=== PATIENT | male | born 1965 | race Caucasian/White ===

== ENCOUNTER 2017-04-12 14:14 | Inpatient (IN) | payer OTHER ==
[~2017-04-12] VITALS: Ht 175.3 cm; Wt 81.6 kg
--- NOTE | 2017-04-12 14:27 | NUR ---
51 Y/O MALE REQUESTING DETOX; STATES HE DRINKS 1 GALLON ("OR MORE") LIQUOR A DAY; LAST DETOX 2 YEARS AGO PER PT. PT VISIBLY INTOXICATED - DIAPHORETIC, SLURRING WORDS ... DENIES OTHER COMPAINTS. HAS FRIEND PRESENT. DENIES SI/HI TAKEN TO [facility] FOR EVAL. SECURITY PRESENT
[2017-04-12 14:30] VITALS: BP 124/82
--- NOTE | 2017-04-12 14:35 | NUR ---
SECURITY AT BEDSIDE FOR WANDING PT CHANGED INTO BLUE SCRUBS
--- NOTE | 2017-04-12 14:40 | ED GENERAL ADULT ---
History of Present Illness General Chief Complaint: ETOH/Drug Related Complaint Stated Complaint: ETOH DETOX Source: patient, friend Exam Limitations: intoxication Vital Signs & Intake/Output Vital Signs & Intake/Output Vital Signs Date Time Temp Pulse Resp B/P B/P Pulse O2 O2 Flow FiO2 Mean Ox Delivery Rate 04/123 116 20 140/68 04/12 2222 116 20 140/68 96 Room Air 04/12 2047 Room Air 04/12 2004 111 16 150/80 04/12 2003 111 16 150/80 93 Room Air 04/12 1430 97.9 116 16 124/82 04/12 1420 97.9 116 16 124/82 96 Room Air Allergies Coded Allergies: No Known Allergies (04/12/17) Reconcile Medications Buprenorphine HCl/Naloxone HCl (Suboxone 12 MG-3 MG Sl Film) 12 MG-3 MG FILM 1 STR SL BID MAINTENANCE (Reported) Lisinopril (Prinivil) 10 MG TABLET 1 TAB PO DAILY HUPERTENSION (Reported) Sertraline HCl (Zoloft) 50 MG TABLET 1 TAB PO DAILY MENTAL HEALTH (Reported) Triage Note: 51 Y/O MALE REQUESTING DETOX; STATES HE DRINKS 1 GALLON ("OR MORE") LIQUOR A DAY; LAST DETOX 2 YEARS AGO PER PT. PT VISIBLY INTOXICATED - DIAPHORETIC, SLURRING WORDS ... DENIES OTHER COMPAINTS. HAS FRIEND PRESENT. DENIES SI/HI TAKEN TO [facility] FOR EVAL. SECURITY PRESENT Triage Nurses Notes Reviewed? yes HPI: Patient presents requesting alcohol detox. Patient states that he was admitted 2 months ago from another facility for alcohol detox and knows that what he really needs his rehabilitation. Patient has no history of seizures or DTs. Positive blackouts. Patient states he is bit nauseous and vomiting over the past 6 days and only able to drink alcohol. Patient states he vomits everything else up. Patient denies any suicidal or homicidal ideations. Past History Travel History Traveled to [place] past 21 day No Medical History Any Pertinent Medical History? see below for history Neurological: NONE EENT: NONE Cardiovascular: hypertension Respiratory: NONE Gastrointestinal: NONE Hepatic: NONE Renal: NONE Musculoskeletal: NONE Psychiatric: NONE Endocrine: NONE Blood Disorders: NONE Cancer(s): NONE TECHNICAL TRAINING COORDINATOR/Reproductive: NONE Surgical History Surgical History: non-contributory Psychosocial History What is your primary language Kazakh Tobacco Use: Quit >30 days ago ETOH Use: heavy use, alcoholic Illicit Drug Use: denies illicit drug use Family History Hx Contributory? No Review of Systems Review of Systems Constitutional: Reports: no symptoms. EENTM: Reports: no symptoms. Respiratory: Reports: no symptoms. Cardiovascular: Reports: no symptoms. GI: Reports: no symptoms. Genitourinary: Reports: no symptoms. Musculoskeletal: Reports: no symptoms. Skin: Reports: no symptoms. Neurological/Psychological: Reports: no symptoms. Hematologic/Endocrine: Reports: no symptoms. Immunologic/Allergic: Reports: no symptoms. All Other Systems: Reviewed and Negative Physical Exam Physical Exam General Appearance: well developed/nourished, alert, awake, anxious, moderate distress, intoxicated Head: atraumatic, normal appearance Eyes: Bilateral: PERRL, EOMI, other (SLUGGISH). Ears, Nose, Throat: normal pharynx, normal ENT inspection, hearing grossly normal Neck: normal inspection, supple, full range of motion Respiratory: normal breath sounds, chest non-tender, no respiratory distress, lungs clear Cardiovascular: regular rate/rhythm, normal peripheral pulses Gastrointestinal: normal bowel sounds, soft, non-tender, no organomegaly Back: normal inspection, normal range of motion Extremities: normal inspection, normal capillary refill, normal range of motion, no edema Neurologic/Psych: no motor/sensory deficits, awake, alert, oriented x 3, normal mood/affect, SLURRING WORDS Skin: intact, normal color, warm/dry Lymphatic: no anterior cervical tete Comments: NO SIGNS OF TRAUMA Core Measures ACS in differential dx? No CVA/TIA Diagnosis: No Severe Sepsis Present: No Septic Shock Present: No Progress Differential Diagnoses I considered the following diagnoses in my evaluation of the patient: [ALCOHOL INTOXICATION, DRUG INTOXICATION, ELECTROLYTE ABNORMALITY] Plan of Care: Orders Procedure Date/time Status Regular Diet 04/12 D Active Add-on Test (ER Only) 04/12 2022 Active EKG 04/12 2022 Active CIWA 04/12 1439 Active URINE DRUGS OF ABUSE 04/12 1439 Complete ETHANOL 04/12 1439 Complete COMPREHENSIVE METABOLIC PANEL 04/12 1439 Complete CBC WITHOUT DIFFERENTIAL 04/12 1439 Complete TROPONIN LEVEL 04/12 1325 Complete Current Medications Sig/James Start time Last Medication Dose Stop Time Status Admin Cyanocobalamin/ 1 BAG ONCE ONE 04/12 2245 UNVr Thiamine/Pyridoxine 04/13 0644 (Vitamin in I.V.) Dextrose/Water 1,000 ML (D5W 1000) Lorazepam 2 MG ONE ONE 04/12 2245 UNVr (Ativan) 04/12 2246 Lorazepam 2 MG ONCE ONE 04/12 2245 UNVr (Ativan) 04/12 2246 Laboratory Tests 04/12/17 1744: Urine Opiates Screen < 100.00, Methadone Screen < 40, Barbiturate Screen < 60, Ur Phencyclidine Scrn < 6.00, Amphetamines Screen < 100, U Benzodiazepines Scrn < 85, Urine Cocaine Screen < 50, Urine Cannabis Screen < 5.00 04/12/17 1325: Anion Gap 20 H, Estimated GFR > 60, BUN/Creatinine Ratio 14.4, Glucose 115 H, Calcium 8.6, Total Bilirubin 0.5, AST 48, ALT 62, Alkaline Phosphatase 88, Troponin I < 0.01, Total Protein 7.7, Albumin 4.5, Globulin 3.2, Albumin/ Globulin Ratio 1.4, CBC w Diff NO MAN DIFF REQ, RBC 4.27 L, MCV 87.5, MCH 30.0, RDW 16.3 H, MPV 7.3 L, Gran % 52.2, Lymphocytes % 38.6, Monocytes % 8.6, Eosinophils % 0.3, Basophils % 0.3, Absolute Granulocytes 3.9, Absolute Lymphocytes 2.9, Absolute Monocytes 0.6, Absolute Eosinophils 0, Absolute Basophils 0, PUBS MCHC 34.3, Serum Alcohol 408.0 Diagnostic Imaging: Viewed by Me: Ultrasound. Discussed w/RAD: Ultrasound. Radiology Impression: PATIENT: SAVANNAH SOSA PRESENT AGE: 51 PATIENT ACCOUNT NO: [id number] : 66 LOCATION: [facility] ORDERING PHYSICIAN: CANDACE PATTON MD SERVICE DATE: 04/12/17 EXAM TYPE: US - US-LIMITED ABDOMEN EXAMINATION: US ABDOMEN LIMITED CLINICAL INFORMATION: Right upper quadrant pain. COMPARISON: None TECHNIQUE: Real-time imaging of the right upper quadrant abdominal viscera. FINDINGS: PANCREAS: Not well visualized secondary to bowel gas. LIVER: The liver demonstrates normal size and contour with increased echogenicity. No focal lesion or intrahepatic biliary duct dilatation. GALLBLADDER: Normal. The gallbladder is physiologically distended without evidence of stones, sludge, polyps, wall thickening or pericholecystic fluid. COMMON BILE DUCT: Normal in caliber measuring 0.6 cm in diameter. RIGHT KIDNEY: Normal. No hydronephrosis. No renal calculi or focal parenchymal lesions. The kidney measures 12.1 cm in maximum dimension. FREE FLUID: None. IMPRESSION: Hepatic steatosis. Unremarkable appearance of the gallbladder. DICTATED BY: FREDDIE ROSAS MD DATE/TIME DICTATED:04/12/172029 ACCOUNT RECEIVABLE CLERK:WADE DATE/TIME TRANSCRIBED:04/12/172029 CONFIDENTIAL, DO NOT COPY WITHOUT APPROPRIATE AUTHORIZATION. <Electronically signed in Other Vendor System> SIGNED BY: ALISON ESPITIA,FREDDIE 04/12/172033 Initial ED EKG: NSR, nonspecific ST T wave chg Departure Departure Disposition: STILL A PATIENT Condition: Stable Clinical Impression Primary Impression: Alcohol dependence with withdrawal Referrals: Grecia XAVIER MD (PCP/Family) Departure Forms: Customer Survey General Discharge Information Admission Note Spoke With: EL ARVIZU MD Documentation of Exam: Documentation of any treatments & extenuating circumstances including Concerns Regarding Discharge (functional status, medication knowledge or non-compliance, living conditions, etc.) that warrant an admission rather than observation: [ ATIVAN PER CIWA, SOCIAL WORK CONSULT FOR REHAB] Alcohol Withdrawl Admission ED Alcohol Detox Admission d/t: CIWA Score >15 Critical Care Note Critical Care Note Critical Care Time: mins: (45 MIN)
--- NOTE | 2017-04-12 14:40 | NUR ---
PT PRESENTS TO ED SEEKING ETOH DETOX. PT STATES HIS LAST DRINK WAS 30 MINUTES AGO AND THAT HE DRINKS "A GALLON" OF [place]OD[place] DAILY. PT DENIES HISTORY OF SEIZURES. PT REPORTS HX OF HYPERTENSION, TAKES MED FOR THAT, PLUS ZOLOFT AND SUBOXONE MAINTENANCE. PER PT, SUBOXONE IS PRESCRIBED BY DR XAVIER. PT DENIES SI OR HI. SITTER AT BEDSIDE.
--- NOTE | 2017-04-12 14:47 | NUR ---
DR PATTON AT BEDSIDE FOR EVAL
[2017-04-12 15:40] LABS: ABSOLUTE BASOPHIL COUNT 0 /CUMM (0.0-0.2); ABSOLUTE EOSINOPHIL COUNT 0 /CUMM (0.0-0.7); ABSOLUTE GRANULOCYTE CT 3.9 /CUMM (1.4-6.5); ABSOLUTE LYMPH COUNT 2.9 /CUMM (1.2-3.4); ABSOLUTE MONOCYTE COUNT 0.6 /CUMM (0.10-0.60); BASOPHIL % 0.3 % (0.0-2.0); EOSINOPHIL % 0.3 % (0-5); GRANULOCYTE % 52.2 % (42.2-75.2); HEMATOCRIT 37.4 % (42-52); MEAN CORPUSCULAR HGB CONC 34.3 G/DL (33.0-37.0); MEAN CORPUSCULAR VOLUME 87.5 FL (80.0-94.0); MEAN PLATELET VOLUME 7.3 FL (7.4-10.4); PLATELET COUNT 213 /CUMM (130-400); RBC DISTRIBUTION WIDTH 16.3 % (11.5-14.5); RED BLOOD CELL CT 4.27 /CUMM (4.70-6.10); WHITE BLOOD CELL COUNT 7.4 /CUMM (4.8-10.8)
[2017-04-12 16:19] VITALS: BP 124/82
--- NOTE | 2017-04-12 18:28 | NUR ---
PT REPORTING UPPER RIGHT QUADRANT PAIN. PT STATES HE WAS TOLD IN THE PAST THAT HE HAS A "FATTY LIVER". ADVISED PT THAT AST/ALT WERE WITHIN NORMAL RANGE. DR PATTON TO ORDER U/S. SITTER AT DOOR
[2017-04-12] MEDS ORDERED: ZOLOFT50 M1 PO (19:12)
[2017-04-12] MEDS ORDERED: PRINIVIL10 M1 PO (19:13)
[2017-04-12] MEDS ORDERED: SUBOXONE 12 MG1 EACH SL ×2 (19:14→19:15)
--- NOTE | 2017-04-12 19:15 | NUR ---
PT IN ROOM 15 CALM AND COOPERATIVE, COMPLAINING OF WITHDRAWAL SYMPTOMS INCLUDING NAUSEA, HEADACHE, ANXIETY, TREMORS, LIGHT SENSITIVITY. SITTER AT DOOR.
[2017-04-12 20:04] VITALS: BP 150/80
--- NOTE | 2017-04-12 20:34 | ULTRASOUND REPORT ---
EXAMINATION: US ABDOMEN LIMITED CLINICAL INFORMATION: Right upper quadrant pain. COMPARISON: None TECHNIQUE: Real-time imaging of the right upper quadrant abdominal viscera. FINDINGS: PANCREAS: Not well visualized secondary to bowel gas. LIVER: The liver demonstrates normal size and contour with increased echogenicity. No focal lesion or intrahepatic biliary duct dilatation. GALLBLADDER: Normal. The gallbladder is physiologically distended without evidence of stones, sludge, polyps, wall thickening or pericholecystic fluid. COMMON BILE DUCT: Normal in caliber measuring 0.6 cm in diameter. RIGHT KIDNEY: Normal. No hydronephrosis. No renal calculi or focal parenchymal lesions. The kidney measures 12.1 cm in maximum dimension. FREE FLUID: None. IMPRESSION: Hepatic steatosis. Unremarkable appearance of the gallbladder.
--- NOTE | 2017-04-12 20:46 | NUR ---
PT MEDICATED WITH ZOFRAN 4MG ODT AND GI COCKTAIL. EKG PERFORMED AND SIGNED OFF BY DR PATTON
--- NOTE | 2017-04-12 21:50 | NUR ---
PT MEDICATED WITH CLONIDINE 0.1MG AND ATARAX 25MG PO. PT WRETCHING, ASKING TO BE ADMITTED FOR ETOH W/D. PT ASKING TO SEE DR PATTON.
[2017-04-12 22:23] VITALS: BP 140/68
--- NOTE | 2017-04-12 22:30 | NUR ---
DR PATTON AT BEDSIDE
--- NOTE | 2017-04-12 22:40 | NUR ---
IV ESTABLISHED, RIGHT FOREARM #20
--- NOTE | 2017-04-12 22:46 | NUR ---
PT HAS IV VITAMIN BAG INFUSING AT PRESENT
--- NOTE | 2017-04-12 22:54 | NUR ---
PT MEDICATED WITH ATIVAN 2MG IV, ATIVAN 2MG PO AND REGLAN 10MG PO. SITTER AT DOOR.
--- NOTE | 2017-04-12 23:15 | History & Physical ---
MARCELO ESPITIA,[facility] 04/12/17 2314: General Information and HPI MD Statement: I have seen and personally examined SAVANNAH SOSA and documented this H&P. The patient is a 51 year old M who presented with a patient stated chief complaint of [alcohol detox]. Source of Information: patient Exam Limitations: intoxication, drowsy History of Present Illness: Patient is a 51-year-old gentleman with PMH of alcoholism, hypertension, anxiety who has come to the ED requesting alcohol detoxification. Patient reports one bottle of vodka per day for the past 2 weeks. Patient reports that since the past fall he has started drinking after 9 years of being sober. He was admitted to [facility] in January 2017 for alcohol detox and was discharged to follow-up with the the outpatient rehabilitation afterwards. Patient has a started drinking right after being discharged from the rehab facility. Patient denies any alcohol withdrawal seizures. He reports constant nausea with none bloody vomitus, reports poor appetite, also reports abdominal pain in the right upper and right lower abdomen, also reports one episode of watery nonbloody diarrhea yesterday. Patient has been having constant headaches, denies loss of consciousness and dizziness. Reports palpitations with no chest pain. Denies fever chills, coughing, shortness of breath, urinary symptoms. 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 Also has constant stress at work that contributes to his alcoholism, in addition to being around friends who drink a lot of alcohol. Denies depression or suicidal ideation. Patient had chronic back pain for which he was on opioids follows with an addiction program and receives treatment with Suboxone, prescribed by Brodie Flood MD. He also sees Dr. Nick Terrell for anxiety. Patient lives by himself, is , and has a 14 year old daughter. Allergies/Medications Allergies: Coded Allergies: No Known Allergies (04/12/17) Past History Travel History Traveled to [place] past 21 day No Medical History Neurological: NONE EENT: NONE Cardiovascular: hypertension Respiratory: NONE Gastrointestinal: NONE Hepatic: NONE Renal: NONE Musculoskeletal: NONE Psychiatric: alcohol dependence, anxiety Endocrine: NONE Blood Disorders: NONE Cancer(s): NONE CLIENT CARE COORDINATOR/Reproductive: NONE Surgical History Surgical History: non-contributory Past Family/Social History Family History Relations & Conditions if any MOTHER FH: breast cancer FH: lung cancer Psychosocial History Smoking Status: Former Smoker (quit 09 months ago) ETOH Use: heavy use, alcoholic Illicit Drug Use: denies illicit drug use Review of Systems Review of Systems Constitutional: Denies: chills, fever, malaise, weakness. EENTM: Reports: no symptoms. Cardiovascular: Reports: palpitations. Denies: chest pain, peripheral edema, syncope. Respiratory: Denies: cough, short of breath, sputum production. GI: Reports: abdominal pain, diarrhea, nausea, vomiting. Denies: constipation, bloody stool. Genitourinary: Reports: no symptoms. Musculoskeletal: Reports: back pain. Skin: Reports: no symptoms. Neurological/Psychological: Reports: anxiety, headache, tremors. Hematologic/Endocrine: Reports: no symptoms. Exam & Diagnostic Data Last 24 Hrs of Vital Signs/I&O Vital Signs Date Time Temp Pulse Resp B/P B/P Pulse O2 O2 Flow FiO2 Mean Ox Delivery Rate 04/13 0427 98.2 105 20 140/80 91 Room Air 04/13 0139 98.2 100 20 140/80 91 Room Air 04/13 0000 97.3 109 18 152/79 04/12 2359 97.3 109 18 152/79 97 04/12 2223 116 20 140/68 04/12 2222 116 20 140/68 96 Room Air 04/12 2047 Room Air 04/12 2004 111 16 150/80 04/12 2003 111 16 150/80 93 Room Air 04/12 1430 97.9 116 16 124/82 04/12 1420 97.9 116 16 124/82 96 Room Air Intake & Output 04/13 0800 04/13 0000 04/12 1600 Intake Total Output Total Balance Patient 81.647 kg Weight Weight Reported by Patient Measurement Method Physical Exam General Appearance Oriented X3, Cooperative, No Acute Distress, drowsy Skin No Significant Lesion Skin Temp/Moisture Exam: Warm/Dry Sepsis Skin Exam (color): Normal for Ethnicity HEENT Atraumatic, EOMI, Mucous Membr. moist/pink, pupils myotic and minimally reactive to light Neck Supple Cardiovascular Normal S1, Normal S2, No Murmurs, tachycardic Lungs Clear to Auscultation, Normal Air Movement Abdomen Normal Bowel Sounds, Soft, right lower and right upper quadrant tenderness, no guarding or rigidity, yusuf sign (-) Neurological Normal Speech, Strength at 5/5 X4 Ext, Normal Tone, Sensation Intact, Cranial Nerves 3-12 NL Extremities No Cyanosis, No Edema, Normal Pulses Vascular Pulses Symmetrical Last 24 Hrs of Labs/Gerald: Laboratory Tests 04/12/17 1744: Urine Opiates Screen < 100.00, Methadone Screen < 40, Barbiturate Screen < 60, Ur Phencyclidine Scrn < 6.00, Amphetamines Screen < 100, U Benzodiazepines Scrn < 85, Urine Cocaine Screen < 50, Urine Cannabis Screen < 5.00 04/12/17 1325: Anion Gap 20 H, Estimated GFR > 60, BUN/Creatinine Ratio 14.4, Glucose 115 H, Calcium 8.6, Phosphorus 4.2, Magnesium 1.8, Total Bilirubin 0.5, AST 48, ALT 62, Alkaline Phosphatase 88, Troponin I < 0.01, Total Protein 7.7, Albumin 4.5, Globulin 3.2, Albumin/Globulin Ratio 1.4, CBC w Diff NO MAN DIFF REQ, RBC 4.27 L, MCV 87.5, MCH 30.0, RDW 16.3 H, MPV 7.3 L, Gran % 52.2, Lymphocytes % 38.6, Monocytes % 8.6, Eosinophils % 0.3, Basophils % 0.3, Absolute Granulocytes 3.9, Absolute Lymphocytes 2.9, Absolute Monocytes 0.6, Absolute Eosinophils 0, Absolute Basophils 0, PUBS MCHC 34.3, Serum Alcohol 408.0 Diagnostic Data EKG Results sinus rhythm, rate of 106, QTc 468, PVCs Other Results SERVICE DATE: 04/12/17 EXAM TYPE: US - US-LIMITED ABDOMEN EXAMINATION: US ABDOMEN LIMITED CLINICAL INFORMATION: Right upper quadrant pain. COMPARISON: None TECHNIQUE: Real-time imaging of the right upper quadrant abdominal viscera. FINDINGS: PANCREAS: Not well visualized secondary to bowel gas. LIVER: The liver demonstrates normal size and contour with increased echogenicity. No focal lesion or intrahepatic biliary duct dilatation. GALLBLADDER: Normal. The gallbladder is physiologically distended without evidence of stones, sludge, polyps, wall thickening or pericholecystic fluid. COMMON BILE DUCT: Normal in caliber measuring 0.6 cm in diameter. RIGHT KIDNEY: Normal. No hydronephrosis. No renal calculi or focal parenchymal lesions. The kidney measures 12.1 cm in maximum dimension. FREE FLUID: None. IMPRESSION: Hepatic steatosis. Unremarkable appearance of the gallbladder. DICTATED BY: FREDDIE ROSAS MD DATE/TIME DICTATED:04/12/172029 AQUACULTURE FARMER:WADE DATE/TIME TRANSCRIBED:04/12/172029 Assessment/Plan Assessment: Patient is a 51-year-old gentleman with PMH of alcoholism, hypertension, anxiety who has come to the ED requesting alcohol detoxification. Patient denies any seizures or LOC. Patient is admitted to the general medicine floor for alcohol detoxification. Problem list and plan: Alcohol intoxication and withdrawal * Continue IV NS * Banana bag * Thiamine, folic acid, multivitamins * Scheduled doses of IV Ativan 2mg Q4 * Ativan per CIWA Q1 PRN * Low threshold for ICU transfer if CIWA scores continues to be >25 and the patient * watch for refeeding syndrome when the patient starts eating tomorrow, will check P and Mg and replete if necessary * psychiatry consult Anion gap metabolic acidosis * compensated metabolic acidosis * most likely due to excess alcohol intake * will continue IV fluids * repeat BEP in am Normocytic anemia * no evidence of bleeding. no baseline CBC available. * may be a combination of JASSON and VitB12 or folate deficiency * added Iron studies, VitB12 and Folate to labs HTN * will continue lisinopril 10 mg daily Anxiety * will continue Zoloft 50 mg daily Chronic back pain on opioid de-addiction * will contact Brodie Flood MD office in [facility] in am to confirm the dose of suboxone Diet: regular Mild pain pathway with tylenol DVT px with SC lovenox FC As Ranked By This Provider Problem List: 1. Alcohol dependence with withdrawal Core Measures/Miscellaneous Acute Coronary Syndrome ACS Diagnosis: No Cerebrovascular Accident CVA/TIA Diagnosis: No Congestive Heart Failure CHF Diagnosis: No Venous Thromboembolism VTE Risk Factors: Acute medical illness, Age > 40 [facility] prophylaxis d/t: VTE low risk, No contraindications No VTE Pharm Prophylaxis d/t: VTE low risk, No contraindications VTE Diagnosis: No VTE Type: NONE VTE Confirmed by (Test): NONE Severe Sepsis Severe Sepsis Present: No Septic Shock Septic Shock Present: No Miscellaneous Documentation Attending Case Discussed With: EL ARVIZU MD Primary Care Physician: Grecia XAVIER MD Patient sees these Specialists none Level of Patient Care: General Medicine KAMLA NEUMANN 04/12/17 2332: General Information and HPI Allergies/Medications Home Med list Buprenorphine HCl/Naloxone HCl (Suboxone 12 MG-3 MG Sl Film) 12 MG-3 MG FILM 1 STR SL BID MAINTENANCE (Reported) Folic Acid 1 MG TABLET 1 MG PO DAILY etoh Gabapentin 300 MG CAPSULE 300 MG PO Q8 anxiety/depression Lisinopril (Prinivil) 10 MG TABLET 1 TAB PO DAILY HUPERTENSION (Reported) Lorazepam (Ativan) 1 MG TABLET 1 TAB PO QHS ETOH DETOX Omeprazole 40 MG CAPSULE.DR 1 CAP PO DAILY GI (Reported) Sertraline HCl (Zoloft) 100 MG TABLET 100 MG PO DAILY depression Thiamine HCl (Vitamin B-1) 100 MG TABLET 100 MG PO DAILY etoh Resident Review Statement Resident Statement: examined this patient, discussed with art gallery internship, agreed with art gallery internship Other Findings: This is a 51-year-old gentleman with past medical history of alcoholism, hypertension, anxiety who came into the ED requesting for alcohol detoxification. Apparently he had one bottle of vodka, every day for last 2 weeks. His last drink was today morning prior to presentation (04/12/17). He denied any history of previous alcohol withdrawal seizures. He was recently hospitalized at [facility] after he started drinking again in fall 2015 after being sober for 8 years. He was admitted to [facility] in January 2017 for alcohol detoxification and then was discharged to outpatient rehabilitation after that. He was discharged from outpatient rehabilitation 2 weeks ago after which he started drinking again and continued to drink bottle of vodka daily. He denied any bloody vomitus, any abdominal pain, diarrhea, constipation. He did have some nausea and continued of constant headaches, he also had some palpitations. Patient works as a director at [employer], he does report that he has a lot of stress as work however his main reason of alcoholism is having friends around that drink alcohol as well. He said that he remained sober for 8 years because he was not around these friends however he came in touch with them again and started drinking again from fall 2015. He also has chronic back pain for which he was on opioids and he is currently on Suboxone prescribed by his primary care Dr. Brodie Turcios M.D. He sees Dr. Suresh Terrell for anxiety as psychiatrist. He lives by himself, is and has a 14-year-old daughter. Tmax of 97.9, pulse of 116, respiration of 16, blood pressure of 140/68, 96% on room air. Physical exam : alert oriented 3, tremulous, anxious, flushed skin, alert oriented to time place and person. Skin was warm and flushed. CVS normal S1-S2 no murmur. Lungs clear to auscultate. Abdomen normal bowel sounds, no guarding or rigidity however tenderness present in the right upper quadrant on deep palpation, Yusuf's sign negative, ?mild hepatomegaly Neurological exam nonfocal, tremor present on outstretched hand. Extremities no cyanosis no edema. Pulses palpable bilaterally. Urine toxicology negative for any substance of abuse. Serum alcohol level of 408. White count of 7.4, H/H of 12.8/37.4, platelet of 213. BUN and creatinine 13/0.9, X within normal limits, magnesium of 1.7, phosphorus 4.5, anion gap of 20, glucose of 115. EKG showed sinus tachycardia with rate of 106, QTC of 468, PVCs present. USG the Abdomen Showed Hepatic Steatosis, Unremarkable Appearance of Gallbladder. We will admit the patient for treatment of alcohol intoxication and withdrawal. Continue to monitor vitals every shift, continue monitor vitals, IV Ativan as per CIWA. IV Ativan 2 mg Q8 standing dose. Low threshold for transfer to ICU if CIWA continue to be more than 25 and patient continues to require more and more Ativan. Last drink was on the morning of 04/12/2017, be watchful for next 48-72 hours for sings of withdrawal. Once patient starts eating,start PO MV, thiamine and folate. check phosphorus and magnesium along with potassium, replete as necessary. Psych consult in a.m. Social work consult in a.m. Eventual plan of outpatient rehabilitation needs to be planned. Once tolerates by mouth diet, continue multivitamin and thiamine and folate by mouth. Problem #2 history of hypertension. Continue lisinopril 10 mg daily. Problem #3 anion gap metabolic acidosis. Most likely secondary to alcohol intoxication. Continue IV fluids. Continue banana bag. Problem #4 normocytic anemia. We'll check iron studies. Continue to follow. Problem #5 history of chronic pain syndrome. Patient takes Suboxone, prescribed by PCP. Confirmed in a.m. Continue mild/moderate and severe pain pathway for pain management. Patient takes Percocet when necessary for pain management at home. Continue to watch pain scores closely and adjust pain medications as needed. #6 history of anxiety/depression. Continue Zoloft in a.m. Full code. Mild/moderate and severe pain pathway. DVT prophylaxis with Lovenox. Regular diet. EL ARVIZU 04/13/17 0349: Attending MD Review Statement Attending Statement Attending MD Statement: examined this patient, discuss w/resident/PA/INSPECTION SUPERVISOR, agreed w/resident/PA/INSPECTION SUPERVISOR, reviewed EMR data (avail), reviewed images, amended to note Attending Assessment/Plan: CC: Alcohol detox PMH: Alcoholism, HTN, anxiety, history of opiate dependence Patient came to ER for all called detox. Patient was sober for 9 years, relapsed in fall, was in different hospital about 2 months back for detox, followed up with outpatient rehabilitation, did well for a few days but then relapsed again. Patient wants to undergo detoxification as he is having family problems, financial problems secondary to alcohol use. Patient denied any alcohol-related seizures in the past. Patient admits blacking out episodes after heavy drinking, does not eat much when he binge drinks, has some nausea and vomiting and associated abdominal pain but denies any syncopal episode, falls, head trauma, diarrhea, suicidal ideation, hallucinations. Drinks about 1 gallon or more liquor per day Vitals: Afebrile, tachycardic, RR 20, mildly hypertensive, saturating well on room air. On examination: A O 3, somnolent but arousable, tremors present, mildly diaphoretic, cooperative, no acute distress, neck supple, JVD normal, no lymphadenopathy, mucosa moist, no focal neurological deficit, no dependent edema , no obvious skin rashes or inflammation are spider angiomata CVS: S1-S2, RRR. RS: Clear to auscultate bilaterally. Abdomen: Soft, NT, ND, bowel sounds present. Labs: WBC 7.4, hemoglobin 12.8, hematocrit 37.4, platelets 213, chloride 95, bicarbonate 24, anion gap 20, BUN 13, creatinine 0.9, glucose 115, AST 48, ALT 62, albumin 4.5 U tox unremarkable, serum alcohol 408 Limited ultrasound abdomen: Hepatic steatosis. Unremarkable appearance of the gallbladder. A and P + Alcohol detox/ withdrawal + History of HTN + Anion gap metabolic acidosis secondary to alcohol + Opiate dependence currently on Suboxone + History of anxiety depression - Admit to general medicine - Scheduled Ativan 2 mg by mouth 3 times a day and when necessary Ativan according to [facility] protocol - Replace electrolytes, thiamine and folic acid - Gentle hydration - Check phosphate tomorrow, CPK in a.m. - Fall precautions - Repeat CBC, CMP in a.m. - Psychiatry consult - Continue home doses of lisinopril, Zoloft and Suboxone, confirm Suboxone dose from PCP - DVT prophylaxis with Lovenox or heparin - Adequate pain control
--- NOTE | 2017-04-12 23:23 | NUR ---
ASSUMED CARE OF PT PER GONSALO ALEXANDRA. PT STANDING IN HALLWAY OF WITH SITTER IN PLACE FOR SAFETY. WILL CONTINUE TO MONITOR
[2017-04-13] VITALS (10 sets, daily range): BP systolic 104–152; BP diastolic 70–90
--- NOTE | 2017-04-13 00:06 | NUR ---
PT GOING TO ROOM 220-2
--- NOTE | 2017-04-13 00:13 | NUR ---
THIS RN PLACED 2ND IV SITE IN LH #20. IV SITE #1 DID NO LONGER FLUSHED. PT HAS BANANA BAG INFUSING 125ML/HR INTO SECOND IV SITE. PT WAS NOT MEDICATEDWITH 2MG ATIVAN IV, NOT NEEDED.
--- NOTE | 2017-04-13 00:47 | NUR ---
REPORT GIVEN TO GONSALO MCKEON.
--- NOTE | 2017-04-13 03:50 | Admission Certification ---
Admission Certification Certification Statement - As attending physician, I certify that at the time of - admission, based on clinical presentation, severity of - symptoms, need for further diagnostic testing and - therapeutic interventions, and risk of adverse outcomes - without in-hospital treatment, in my clinical assessment, - this patient requires an acute hospital stay for a minimum - of two nights or longer. I have also considered psychsocial - factors such as support system, advanced age, financial - issues, cognitive issues, and failed out-patient treatments, - past re-admission history, safety of patient, and lack of - compliance as applicable. Specific rationale supporting this admission is: Alcohol withdrawal
--- NOTE | 2017-04-13 07:18 | PN- Housestaff ---
ASHELY ESPITIA,LILIANA 04/13/17 0718: Subjective Follow-up For: alcohol detox Subjective: Pt reports having drunk 1 gallon of vodka, blood alcohol level > 400. CIWA scores overnight 4,27,18,4, will inc ativan from 2mg iv q8 to 2mg po q6. labs reviewed - na 139 to 129, k 3.9 to 3.3, mg 1.8 to 1.4, ag 20 to 13, phos 4.2 to 4.8. repleted with 1x KDUR and 1gm mg sulf. he is getting 1 bag of banana bag. i spoke to Dr. Flood who confirmed that pt is on suboxone 12 mg SL bid (total 24 mg daily). psych and sw has been consulted,appreciate their reccs. Review of Systems Constitutional: Reports: see HPI. Objective Last 24 Hrs of Vital Signs/I&O Vital Signs Date Time Temp Pulse Resp B/P B/P Pulse O2 O2 Flow FiO2 Mean Ox Delivery Rate 04/13 1157 96 150/90 04/13 0911 97.0 92 20 130/70 92 Room Air 04/13 0641 98.2 96 20 150/90 91 Room Air 04/13 0600 98.2 96 20 150/90 04/13 0427 98.2 105 20 140/80 91 Room Air 04/13 0400 98.2 105 20 104/88 04/13 0200 Room Air 04/13 0200 98.2 100 20 140/80 04/13 0139 98.2 100 20 140/80 91 Room Air 04/13 0000 97.3 109 18 152/79 04/12 2359 97.3 109 18 152/79 97 04/12 2223 116 20 140/68 04/12 2222 116 20 140/68 96 Room Air 04/12 2047 Room Air 04/12 2004 111 16 150/80 04/12 2003 111 16 150/80 93 Room Air 04/12 1430 97.9 116 16 124/82 04/12 1420 97.9 116 16 12482 96 Room Air Intake & Output 04/13 1600 04/13 0800 04/13 0000 Intake Total 940 Output Total Balance 940 Intake, IV 700 Intake, Oral 240 Number 0 Bowel Movements Patient 81.647 kg Weight Weight Reported by Patient Measurement Method Physical Exam General Appearance: Alert, Cooperative, No Acute Distress, sleepy HEENT: Atraumatic Cardiovascular: Regular Rate, Normal S1, Normal S2 Lungs: Clear to Auscultation Abdomen: Normal Bowel Sounds, Soft, No Tenderness Extremities: No Edema Current Medications: Current Medications Sig/James Start time Last Medication Dose Route Stop Time Status Admin Acetaminophen 500 MG Q6P PRN 04/13 0500 AC 04/13 PO 0615 Buprenorphine/ 1.5 TAB BID 04/13 1000 AC 04/13 Naloxone SL 0913 Clonidine 0.1 MG TID PRN 04/13 0945 AC PO Clonidine 0 .STK-MED ONE 04/12 2144 DC PO Clonidine 0.1 MG ONCE ONE 04/12 2115 DC 04/12 PO 04/12 2116 214 Cyanocobalamin/ 1 BAG ONCE ONE 04/12 2245 DC 04/12 Thiamine/Pyridoxine IV 04/13 0644 2249 Dextrose/Water 1,000 ML Enoxaparin Sodium 40 MG DAILY 04/13 1000 AC 04/13 SC 0843 Folic Acid 1 MG DAILY 04/13 1000 AC 04/13 PO 0842 Hydroxyzine HCl 0 .STK-MED ONE 04/12 2144 DC PO Hydroxyzine HCl 25 MG ONCE ONE 04/12 2115 DC 04/12 PO 04/12 2116 214 Lisinopril 10 MG DAILY 04/13 1000 AC 04/13 PO 1157 Lorazepam 2 MG Q6 04/13 1200 AC 04/13 PO 1157 Lorazepam 2 MG Q8 04/13 0600 DC 04/13 IV 0615 Lorazepam 0 .STK-MED ONE 04/13 0007 DC .ROUTE Lorazepam 2 MG Q4 04/12 2330 DC 04/13 IV 0228 Lorazepam See Dose Q1P PRN 04/12 2315 AC Insts (1) IV Lorazepam 0 .STK-MED ONE 04/12 224 DC .ROUTE Lorazepam 0 .STK-MED ONE 04/12 2248 DC PO Lorazepam 2 MG ONE ONE 04/12 2245 DC 04/12 IV 04/12 2246 2254 Lorazepam 2 MG ONCE ONE 04/12 224 DC 04/12 PO 04/12 2246 2254 Magnesium Oxide 400 MG BID 04/13 1000 AC 04/13 PO 04/13 2201 0842 Magnesium Sulfate 1 GM ONCE ONE 04/13 0930 AC 04/13 Dextrose/Water 100 ML IV 04/13 1329 1200 Metoclopramide HCl 0 .STK-MED ONE 04/12 2217 DC PO Metoclopramide HCl 10 MG ONCE ONE 04/12 2215 DC 04/12 PO 04/12 2216 2254 Multivitamins 1 TAB DAILY 04/13 1000 AC 04/13 PO 0842 Omeprazole 40 MG DAILY AC 04/13 0930 AC 04/13 PO 1156 Ondansetron HCl 0 .STK-MED ONE 04/12 2038 DC PO Ondansetron HCl 4 MG ONCE ONE 04/12 2030 DC 04/12 PO 04/12 2031 204 Potassium Chloride 40 MEQ ONCE ONE 04/13 0930 DC 04/13 PO 04/13 0931 1156 Sertraline HCl 50 MG DAILY 04/13 1000 AC 04/13 PO 1157 Thiamine HCl 100 MG DAILY 04/13 1000 AC 04/13 PO 0842 Thiamine HCl 100 MG ONCE ONE 04/13 0145 DC 04/13 PO 04/13 0146 0223 Thiamine HCl 0 .STK-MED ONE 04/123 DC .ROUTE Dose Instructions: (1)Lorazepam: See admin criteria Last 24 Hrs of Lab/Gerald Results Last 24 Hrs of Labs/Mics: Laboratory Tests 04/13/17 0650: Anion Gap 13, Estimated GFR > 60, BUN/Creatinine Ratio 18.8, Phosphorus 4.8 H, Magnesium 1.4 L, Iron 270 H, TIBC 396, Ferritin 159.0, Creatine Kinase 224 H, Vitamin B12 530, Folate > 20.0 H, CBC w Diff NO MAN DIFF REQ, RBC 3.92 L, MCV 87.0, MCH 30.1, RDW 15.5 H, MPV 8.0, Gran % 61.1, Lymphocytes % 29.9, Monocytes % 7.8, Eosinophils % 0.9, Basophils % 0.3, Absolute Granulocytes 3.0, Absolute Lymphocytes 1.5, Absolute Monocytes 0.4, Absolute Eosinophils 0, Absolute Basophils 0, PUBS MCHC 34.6 04/12/17 1744: Urine Opiates Screen < 100.00, Methadone Screen < 40, Barbiturate Screen < 60, Ur Phencyclidine Scrn < 6.00, Amphetamines Screen < 100, U Benzodiazepines Scrn < 85, Urine Cocaine Screen < 50, Urine Cannabis Screen < 5.00 04/12/17 1325: Anion Gap 20 H, Estimated GFR > 60, BUN/Creatinine Ratio 14.4, Glucose 115 H, Calcium 8.6, Phosphorus 4.2, Magnesium 1.8, Total Bilirubin 0.5, AST 48, ALT 62, Alkaline Phosphatase 88, Troponin I < 0.01, Total Protein 7.7, Albumin 4.5, Globulin 3.2, Albumin/Globulin Ratio 1.4, CBC w Diff NO MAN DIFF REQ, RBC 4.27 L, MCV 87.5, MCH 30.0, RDW 16.3 H, MPV 7.3 L, Gran % 52.2, Lymphocytes % 38.6, Monocytes % 8.6, Eosinophils % 0.3, Basophils % 0.3, Absolute Granulocytes 3.9, Absolute Lymphocytes 2.9, Absolute Monocytes 0.6, Absolute Eosinophils 0, Absolute Basophils 0, PUBS MCHC 34.3, Serum Alcohol 408.0 Assessment/Plan Assessment: 51-year-old gentleman with past medical history of alcoholism, opioid dependence on suboxone, hx of cocaine abuse, hypertension, anxiety, came into the ED requesting for alcohol detoxification. # Alcohol detox - Serum alcohol level of 408 on admission, Last drink was on the morning of , 1 gallon of vodka - USG the Abdomen Showed Hepatic Steatosis, Unremarkable Appearance of Gallbladder * On PO ativan scheduled 2 mg Q6, IV ativan per CIWA * Replete electrolytes as needed - k, mg, phos * Appreciate psych and SW consult * continue multivitamin and thiamine and folate * banana bag X 1 given * clonidine 0.1 mg tid prn systolic bp > 160 # Opioid dependence on suboxone -Confirmed with Dr. Brodie Turcios M.D., PCP regarding his suboxone dose -Pt sees Dr. Suresh Terrell for anxiety as psychiatrist * Continue suboxone 12 mg bid # Normocytic anemia with elevated RDW - H/H: 12.8/37.4, RDW 16.3 - Iron 270H, TIBC 396, ferritin 159, B12 530, folate > 20 # History of anxiety/depression * Continue Zoloft # History of hypertension. * Continue lisinopril 10 mg daily Mild/moderate and severe pain pathway DVT prophylaxis with Lovenox Regular diet Full code Problem List: 1. Alcohol dependence with withdrawal Pain Ratin Pain Location: none Pain Goal: Pain 4 or less Pain Plan: mild pp Tomorrow's Labs & Rationales: bep mg phos electrolyte repletion cbc anemia BESSIEFAYE Roman 04/13/17 1103: Attending MD Review Statement Attending Statement Attending MD Statement: examined this patient, discuss w/resident/PA/CASE PLANNER, agreed w/resident/PA/CASE PLANNER, discussed with family, reviewed EMR data (avail), discussed with nursing, discussed with case mgmt, reviewed images, amended to note Attending Assessment/Plan: Patient deliriuos aaox 2 oriented, vitally stable for now. A and P + Alcohol detox/ withdrawal, Blood alcohol level 400s on admission + History of HTN + Opiate dependence currently on Suboxone + History of anxiety depression - Admit to general medicine - Scheduled Ativan and Ativan according to CIWA protocol - Replace electrolytes, thiamine and folic acid - Gentle hydration - Fall precautions - Repeat CBC, CMP in a.m. - Psychiatry consult - Continue home doses of lisinopril, Zoloft and Suboxone, confirm Suboxone dose from PCP, clonidine for bp control - DVT prophylaxis with Lovenox or heparin - Adequate pain control. closely monitor patient.
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
[2017-04-13 08:17] LABS: ABSOLUTE BASOPHIL COUNT 0 /CUMM (0.0-0.2); ABSOLUTE EOSINOPHIL COUNT 0 /CUMM (0.0-0.7); ABSOLUTE LYMPH COUNT 1.5 /CUMM (1.2-3.4); ABSOLUTE MONOCYTE COUNT 0.4 /CUMM (0.10-0.60); BASOPHIL % 0.3 % (0.0-2.0); EOSINOPHIL % 0.9 % (0-5); GRANULOCYTE % 61.1 % (42.2-75.2); HEMATOCRIT 34.1 % (42-52); MEAN CORPUSCULAR HGB 30.1 PG (27.0-31.0); MEAN CORPUSCULAR HGB CONC 34.6 G/DL (33.0-37.0); PLATELET COUNT 137 /CUMM (130-400); RBC DISTRIBUTION WIDTH 15.5 % (11.5-14.5); RED BLOOD CELL CT 3.92 /CUMM (4.70-6.10)
[2017-04-13] MEDS ORDERED: OMEPRAZOLE40 M1 PO (09:30)
--- NOTE | 2017-04-13 10:47 | NUR ---
0055 ADMITTED FROM ER VIA W/C TO ROOM 220/2.A&OX3 FROM HOME.AMBULATED TO BED.BANANA BAG INFUSING FROM ER.ON RA.ALP ON.ORIENTED TO ROOM & SURROUNDING.CALL HAN IN REACH.NO BED ALARM.URINAL WITHIN REACH. DROWSY & AROUSABLE AT TIMES.
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
--- NOTE | 2017-04-13 19:23 | NUR ---
DR GUEVARA IN TO SEE PT AT THIS TIME. PT STATING THAT PO IBUPROFEN DID NOT HELP AT ALL.
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
[2017-04-14] VITALS (8 sets, daily range): BP systolic 100–124; BP diastolic 60–88
[2017-04-14 07:48] LABS: ABSOLUTE BASOPHIL COUNT 0 /CUMM (0.0-0.2); ABSOLUTE EOSINOPHIL COUNT 0.1 /CUMM (0.0-0.7); ABSOLUTE GRANULOCYTE CT 6.1 /CUMM (1.4-6.5); ABSOLUTE LYMPH COUNT 0.9 /CUMM (1.2-3.4); ABSOLUTE MONOCYTE COUNT 0.4 /CUMM (0.10-0.60); BASOPHIL % 0.2 % (0.0-2.0); EOSINOPHIL % 0.7 % (0-5); GRANULOCYTE % 82.1 % (42.2-75.2); HEMATOCRIT 36.5 % (42-52); MEAN CORPUSCULAR HGB 30.4 PG (27.0-31.0); MEAN CORPUSCULAR VOLUME 89.4 FL (80.0-94.0); MEAN PLATELET VOLUME 8.6 FL (7.4-10.4); PLATELET COUNT 142 /CUMM (130-400); RBC DISTRIBUTION WIDTH 16.1 % (11.5-14.5); RED BLOOD CELL CT 4.09 /CUMM (4.70-6.10); WHITE BLOOD CELL COUNT 7.4 /CUMM (4.8-10.8)
--- NOTE | 2017-04-14 08:03 | PN- Housestaff ---
See Addendum Subjective Follow-up For: alcohol detox Subjective: pt was seen today, report that he has neck and left arm pain that gets worse with activity, chronic. he also had substernal chest discomfort, for which ekg and trop was done. ekg reviewed, sinus tachycardia. his ciwa scores were 8,5,0,0,7,17,2,2,16, received 8 mg of po ativan and 2 mg of iv ativan in the past 24 hours, will taper ativan to 2q8. labs reviewed, electrolytes improved, k now 4.4, mag 1.9. Review of Systems Constitutional: Reports: see HPI. Objective Last 24 Hrs of Vital Signs/I&O Vital Signs Date Time Temp Pulse Resp B/P B/P Pulse O2 O2 Flow FiO2 Mean Ox Delivery Rate 04/14 0953 126 108/60 04/14 0948 97.0 100 20 120/70 91 Room Air 04/14 0651 99.5 110 20 110/74 91 Room Air 04/14 0215 98.7 100 20 100/70 91 Room Air 04/14 0000 98.4 104 20 124/70 04/13 2235 98.4 104 20 124/70 94 Room Air 04/13 1355 97.2 80 20 142/80 95 Room Air 04/13 1157 96 150/90 Intake & Output 04/14 1600 04/14 0800 04/14 0000 Intake Total 180 Output Total Balance 180 Intake, Oral 180 Physical Exam General Appearance: Alert, Oriented X3, Cooperative, Mild Distress HEENT: Atraumatic Cardiovascular: tachycardic Lungs: Clear to Auscultation, Normal Air Movement Abdomen: Normal Bowel Sounds, Soft, No Tenderness Neurological: Normal Speech Extremities: No Edema Current Medications: Current Medications Sig/James Start time Last Medication Dose Route Stop Time Status Admin Acetaminophen 500 MG Q6P PRN 04/13 0500 AC 04/13 PO 0615 Buprenorphine/ 1.5 TAB BID 04/13 1000 AC 04/14 Naloxone SL 0951 Clonidine 0.1 MG TID PRN 04/13 0945 AC PO Cyclobenzaprine HCl 10 MG .STK-MED ONE 04/13 2000 DC PO 04/13 2001 Cyclobenzaprine HCl 10 MG Q8P PRN 04/13 194 AC 04/13 PO 1958 Enoxaparin Sodium 40 MG DAILY 04/13 1000 AC 04/14 SC 0951 Folic Acid 1 MG DAILY 04/13 1000 AC 04/14 PO 0953 Ibuprofen 400 MG Q8P PRN 04/13 1945 AC 04/14 PO 0533 Ibuprofen 400 MG ONCE ONE 04/13 1815 DC 04/13 PO 04/13 1816 1814 Lisinopril 10 MG DAILY 04/13 1000 AC 04/14 PO 0953 Lorazepam 2 MG Q8 04/14 1400 AC PO Lorazepam 2 MG Q6 04/13 1200 DC 04/14 PO 0511 Lorazepam See Dose Q1P PRN 04/12 2315 AC 04/14 Insts (1) IV 0951 Magnesium Oxide 400 MG BID 04/13 1000 DC 04/13 PO 04/13 2201 2031 Magnesium Sulfate 1 GM ONCE ONE 04/13 0930 DC 04/13 Dextrose/Water 100 ML IV 04/13 1329 1200 Multivitamins 1 TAB DAILY 04/13 1000 AC 04/14 PO 0952 Omeprazole 40 MG DAILY AC 04/13 0930 AC 04/14 PO 0511 Patient Medication 1 ED .STK-MED ONE 04/13 1434 IA Teaching ED 04/13 1435 Sertraline HCl 50 MG DAILY 04/13 1000 AC 04/14 PO 0952 Thiamine HCl 100 MG DAILY 04/13 1000 AC 04/14 PO 0952 Dose Instructions: (1)Lorazepam: See admin criteria Last 24 Hrs of Lab/Gerald Results Last 24 Hrs of Labs/Mics: Laboratory Tests 04/14/17 0920: Troponin I < 0.01 04/14/17 0618: Anion Gap 14, Estimated GFR > 60, BUN/Creatinine Ratio 18.6, Phosphorus 3.5, Magnesium 1.9, CBC w Diff NO MAN DIFF REQ, RBC 4.09 L, MCV 89.4, MCH 30.4, RDW 16.1 H, MPV 8.6, Gran % 82.1 H, Lymphocytes % 11.6 L, Monocytes % 5.4, Eosinophils % 0.7, Basophils % 0.2, Absolute Granulocytes 6.1, Absolute Lymphocytes 0.9 L, Absolute Monocytes 0.4, Absolute Eosinophils 0.1, Absolute Basophils 0, PUBS MCHC 34.0 Assessment/Plan Assessment: 51-year-old gentleman with past medical history of alcoholism, opioid dependence on suboxone, hx of cocaine abuse, hypertension, anxiety, came into the ED requesting for alcohol detoxification. # Alcohol detox - Serum alcohol level of 408 on admission, last drink was on the morning of , 1 gallon of vodka - USG the Abdomen Showed Hepatic Steatosis, Unremarkable Appearance of Gallbladder * On PO ativan scheduled 2 mg Q8, taper 25% each day as tolerated, IV ativan per CIWA * Replete electrolytes as needed - k, mg, phos * Appreciate psych and SW consult * continue multivitamin and thiamine and folate * banana bag X 1 given * clonidine 0.1 mg tid prn systolic bp > 160 # Substernal chest pain, most likely due to GERD - EKG and trop negative * Continue omeprazole # Opioid dependence on suboxone -Confirmed with Dr. Bordie Turcios M.D., PCP regarding his suboxone dose -Pt sees Dr. Suresh Terrell for anxiety as psychiatrist * Continue suboxone 12 mg bid # Normocytic anemia with elevated RDW - H/H: 12.8/37.4, RDW 16.3 - Iron 270H, TIBC 396, ferritin 159, B12 530, folate > 20 # History of anxiety/depression * Continue Zoloft # History of hypertension. * Continue lisinopril 10 mg daily Mild/moderate and severe pain pathway DVT prophylaxis with Lovenox Regular diet Full code Problem List: 1. Alcohol dependence with withdrawal Pain Ratin Pain Location: substernal chest pain Pain Goal: Pain 4 or less Pain Plan: mild pp suboxone Tomorrow's Labs & Rationales: bep mag phos for electrolytes DVT/Prophylaxis: mechanical, pharmacological
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
--- NOTE | 2017-04-14 13:44 | Patient Discharge Instructions ---
Discharge Instructions General Discharge Information You were seen/treated for: Alcohol detox Special Instructions: Follow up with PCP in 1 week PLEASE TAKE AN APPOINTMENT TO [facility] [place] BY YOURSELF. Diet Continue normal diet: Yes Activity Full Activity/No Limits: Yes Acute Coronary Syndrome Inclusion Criteria At DC or during hospital stay patient has or had the following: ACS DIAGNOSIS No Discharge Core Measures Meds if any: Prescribed or Continued at Discharge Meds if any: NOT Prescribed or Continued at Discharge Congestive Heart Failure Inclusion Criteria At DC or during hospital stay patient has or had the following: CHF DIAGNOSIS No Discharge Core Measures Meds if any: Prescribed or Continued at Discharge Meds if any: NOT Prescribed or Continued at Discharge Cerebrovascular accident Inclusion Criteria At DC or during hospital stay patient has or had the following: CVA/TIA Diagnosis No Discharge Core Measures Meds if any: Prescribed or Continued at Discharge Meds if any: NOT Prescribed or Continued at Discharge Venous thromboembolism Inclusion Criteria VTE Diagnosis No VTE Type NONE VTE Confirmed by (Test) NONE Discharge Core Measures - Per Current guidelines, there needs to be overlap - treatment for the first 5 days of Warfarin therapy. - If discharged on Warfarin prior to 5 days of - overlap therapy, the patient will need to be - assessed for post discharge needs including - *Post discharge parental anticoagulation - *Warfarin and/or parental anticoagulation education - *Follow up date to check INR post discharge At least 5 days overlap therapy as Inpatient No Meds if any: Prescribed or Continued at Discharge Note: Overlap Therapy is Warfarin and Anticoagulant Meds if any: NOT Prescribed or Continued at Discharge
--- NOTE | 2017-04-14 15:00 | NUR ---
SOMMELIER CALLED TO BEDSIDE TO ASSESS PT. PT'S CIWA SCORES ELEVATED AND IV ATIVAN GIVEN FREQUENTLY. PATIENT SAFETY MONITOR PLACED. PT'S HR HAS BEEN ELEVATED THROUGHOUT THE DAY. TROP NEGATIVE AND EKG COMPLETED/REVIEWED BY MEDICAL TEAM. PT A/OX1-2. IMPULSIVE. RESPONDS TO PATIENT SAFTEY MONITOR REDIRECTION. WILL MONITOR.
--- NOTE | 2017-04-14 15:26 | NUR ---
Referral received yesterday via electronic blood bank order control clerk. This patient is a 51 year old man, admitted to the hospital on 04/12/17 with ETOH Detox. Patient was placed on the CIWA; has had fluctuating signs and symptoms of withdrawal, including anxiety, tremors,sweating and disorientation. He has also received 17mg of ativan in the past 24 hours. I met with Erik this afternoon briefly to assess his interest and motivation in aftercare, and also at his request. When I met with Erik he was tremulous; pressured speech pattern, and had a difficult time concentrating. Case discussed with nurse; call placed to MD; patient safety monitor ordered. Patient receives methadone from a prescriber in [place]; receives mental health services from another provider. These services need to be coordinated upon discharge as patient is requesting IOP level of care. Will follow.
--- NOTE | 2017-04-14 15:31 | Incdntl Nt Psy ---
Incidental Note Notation: Discussed case with nursing, resident and social work. Patient currently withdrawing from alcohol. Confused has required 17 mg of Ativan in the past 24 hours is currently getting when necessary doses hourly. Plan - Psych evaluation to follow once patient clears - Recommend continuation of one-to-one sitter - Consider transferring patient to critical care unit status does not improve
--- NOTE | 2017-04-14 18:54 | NUR ---
PT VS TAKEN BP 106/60, HR 116, RR 12, 85-90% ON RA-PLACED ON 2L AT THIS TIME, 98.5 TEMP ORALLY. DROWSY ARROUSABLE. ANXIOUS AT TIMES, IMPULSIVE. SWEATY, CONFUSED AND HALLUCINATIONS AT TIMES. CALL PLACED TO INFORMATICS ANALYST TO MAKE AWARE- AWAITING CALL BACK FROM INFORMATICS ANALYST AT THIS TIME IN REGARDS TO PT'S PLAN OF CARE-?TRANSFER TO ICU PT IS REQUIRING MORE IV ATIVAN. SO FAR FOR THIS SHIFT PT HAS RECIEVED 5 MG IV ATIVAN. LOCKER ROOM ATTENDANT REMAINS IN PLACE FOR HIGH FALL RISK. WILL CONT. TO MONITOR
--- NOTE | 2017-04-14 21:36 | NUR ---
CALL PLACED AT THIS TIME REGARDING PT'S ORDER FOR SAILMAKER. PT IS CALM COOPERATIVE EASILY REDIRECTABLE, STABLE WITH AMBULATION WITH ASSISTANCE. BED ALARM IN PLACE. NO ATTEMPTS OOB WITHOUT CALLING. WILL ASK COGNOS ANALYST ABOUT POSSIBLE DC SAILMAKER AT THIS TIME- NURSING PROCUREMENT CONSULTANT IN AGREEMENT. AWAITING CALL BACK
[2017-04-15] VITALS (9 sets, daily range): BP systolic 116–160; BP diastolic 70–88
--- NOTE | 2017-04-15 05:19 | PN- Housestaff ---
See Addendum Subjective Follow-up For: ETOH detox Subjective: Pt seen and examined. Offers no complaints. Denies chest pain, SOB, n/v/abd pain. VSS. CIWA scores: Ranging from 20-0 last 24 hours. Review of Systems Constitutional: Reports: no symptoms. Objective Last 24 Hrs of Vital Signs/I&O Vital Signs Date Time Temp Pulse Resp B/P B/P Pulse O2 O2 Flow FiO2 Mean Ox Delivery Rate 04/15 0400 97.9 98 20 118/70 04/15 0310 98 20 118/70 94 Room Air 04/15 0200 97.9 101 24 116/88 04/15 0000 Nasal 2.0L Cannula 04/14 2228 97.9 101 24 116/88 100 Nasal Cannula 04/14 1907 92 Nasal 2.0L Cannula 04/14 190 90 Room Air 04/14 1907 98.5 116 12 106/60 86 Room Air 04/14 1404 98.7 100 18 122/80 91 Room Air 04/14 1133 97.0 110 20 110/60 89 Room Air 04/14 0953 126 108/60 04/14 0948 97.0 100 20 120/70 91 Room Air 04/14 0651 99.5 110 20 110/74 91 Room Air Intake & Output 04/15 0800 04/15 0000 04/14 1600 Intake Total 480 Output Total 700 Balance -700 480 Intake, IV 0 Intake, Oral 480 Number 0 Bowel Movements Output, Urine 700 Physical Exam General Appearance: Alert, Cooperative Skin: No Significant Lesion HEENT: Atraumatic, PERRLA, EOMI, Mucous Membr. moist/pink Neck: Supple Cardiovascular: Regular Rate, No Murmurs Lungs: Clear to Auscultation Abdomen: Normal Bowel Sounds, Soft, No Tenderness Neurological: Normal Speech Vascular: Pulses Symmetrical Current Medications: Current Medications Sig/James Start time Last Medication Dose Route Stop Time Status Admin Acetaminophen 500 MG Q6P PRN 04/13 0500 AC 04/13 PO 0615 Buprenorphine/ 1.5 TAB BID 04/13 1000 AC 04/14 Naloxone SL 205 Clonidine 0.1 MG TID PRN 04/13 0945 AC PO Cyclobenzaprine HCl 10 MG Q8P PRN 04/13 1945 AC 04/14 PO 1732 Enoxaparin Sodium 40 MG DAILY 04/13 1000 AC 04/14 SC 0951 Folic Acid 1 MG DAILY 04/13 1000 AC 04/14 PO 0953 Ibuprofen 400 MG Q8P PRN 04/13 1945 AC 04/14 PO 1404 Lisinopril 10 MG DAILY 04/13 1000 AC 04/14 PO 0953 Lorazepam 2 MG Q8 04/14 1400 AC 04/15 PO 0559 Lorazepam 2 MG ONE ONE 04/14 1400 DC 04/14 IV 04/14 1401 1503 Lorazepam 2 MG Q6 04/13 1200 DC 04/14 PO 0511 Lorazepam See Dose Q1P PRN 04/12 2315 AC 04/15 Insts (1) IV 0414 Multivitamins 1 TAB DAILY 04/13 1000 AC 04/14 PO 0952 Omeprazole 40 MG DAILY AC 04/13 0930 AC 04/15 PO 0559 Sertraline HCl 50 MG DAILY 04/13 1000 AC 04/14 PO 0952 Thiamine HCl 100 MG DAILY 04/13 1000 AC 04/14 PO 0952 Dose Instructions: (1)Lorazepam: See admin criteria Last 24 Hrs of Lab/Gerald Results Last 24 Hrs of Labs/Mics: Laboratory Tests 04/14/17 0920: Troponin I < 0.01 Assessment/Plan Assessment: 51-year-old gentleman with past medical history of alcoholism, opioid dependence on suboxone, hx of cocaine abuse, hypertension, anxiety, came into the ED requesting for alcohol detoxification. # Alcohol detox - Serum alcohol level of 408 on admission, last drink was on the morning of , 1 gallon of vodka - USG the Abdomen Showed Hepatic Steatosis, Unremarkable Appearance of Gallbladder * On PO ativan scheduled 2 mg Q8, IV ativan per CIWA would keep on current dose given CIWA scores running high * Replete electrolytes as needed - k, mg, phos * Appreciate psych and SW consult * continue multivitamin and thiamine and folate # Substernal chest pain: Resolved, most likely due to GERD - EKG and trop negative * Continue omeprazole # Opioid dependence on suboxone -Confirmed with Dr. Brodie Turcios M.D., PCP regarding his suboxone dose -Pt sees Dr. Suresh Terrell for anxiety as psychiatrist * Continue suboxone 12 mg bid # Normocytic anemia with elevated RDW - H/H: 12.8/37.4, RDW 16.3 - Iron 270H, TIBC 396, ferritin 159, B12 530, folate > 20 # History of anxiety/depression * Continue Zoloft # History of hypertension. * Continue lisinopril 10 mg daily Mild/moderate and severe pain pathway DVT prophylaxis with Lovenox Regular diet Full code Problem List: 1. Alcohol dependence with withdrawal Pain Ratin Pain Location: NA Pain Goal: Remain pain free Pain Plan: Pain free Tomorrow's Labs & Rationales: BEP &Mg to monitor electrolytes.
[2017-04-16 02:45] VITALS: BP 144/76
[2017-04-16 06:30] VITALS: BP 134/78
[2017-04-16 08:00] VITALS: BP 134/78
--- NOTE | 2017-04-16 08:19 | PN- Housestaff ---
ASHELY ESPITIA,LILIANA 04/16/17 0818: Subjective Follow-up For: alcohol detox Subjective: patient was sobbing at the edge of the bed this morning. he is upset about his current family and work situation, he is motivated to go to rehab after he finishes his taper for alcohol detox, most likely going to [facility] but will have further discussion with Ruth tomorrow. his ciwa scores 2,0,0,3,3,7,7,9,9,13,14. he received 3 mg iv ativan and 6 mg po ativan. will taper to 1.5 q8 as his ciwa has been low in the past 12 hours. Review of Systems Constitutional: Reports: see HPI. Objective Last 24 Hrs of Vital Signs/I&O Vital Signs Date Time Temp Pulse Resp B/P B/P Pulse O2 O2 Flow FiO2 Mean Ox Delivery Rate 04/16 0938 85 132/84 04/16 0630 98.4 81 20 134/78 94 Room Air 04/16 0245 98.5 60 20 144/76 95 Room Air 04/15 2249 98.1 88 20 120/70 97 Room Air 04/15 1535 98.2 97 20 122/74 96 04/15 1200 98.0 100 18 140/78 Intake & Output 04/16 1600 04/16 0800 04/16 0000 Intake Total 100 480 Output Total Balance 100 480 Intake, Oral 100 480 Physical Exam General Appearance: Alert, Oriented X3, Cooperative, crying Cardiovascular: Regular Rate, Normal S1, Normal S2 Lungs: Clear to Auscultation, Normal Air Movement Abdomen: Normal Bowel Sounds, Soft, No Tenderness Current Medications: Current Medications Sig/James Start time Last Medication Dose Route Stop Time Status Admin Acetaminophen 500 MG Q6P PRN 04/13 0500 AC 04/13 PO 0615 Buprenorphine/ 1.5 TAB BID 04/13 1000 AC 04/16 Naloxone SL 0936 Clonidine 0.1 MG TID PRN 04/13 0945 AC PO Cyclobenzaprine HCl 10 MG Q8P PRN 04/13 1945 AC 04/15 PO 1319 Enoxaparin Sodium 40 MG DAILY 04/13 1000 AC 04/16 SC 0936 Folic Acid 1 MG DAILY 04/13 1000 AC 04/16 PO 0937 Ibuprofen 400 MG Q8P PRN 04/13 1945 AC 04/15 PO 1700 Lisinopril 10 MG DAILY 04/13 1000 AC 04/16 PO 0938 Lorazepam 1.5 MG Q8 04/16 1400 AC PO Lorazepam 2 MG Q8 04/14 1400 DC 04/16 PO 0640 Lorazepam See Dose Q1P PRN 04/12 2315 AC 04/16 Insts (1) IV 0841 Multivitamins 1 TAB DAILY 04/13 1000 AC 04/16 PO 0937 Omeprazole 40 MG DAILY AC 04/13 0930 AC 04/16 PO 0640 Sertraline HCl 50 MG DAILY 04/13 1000 AC 04/16 PO 0937 Thiamine HCl 100 MG DAILY 04/13 1000 AC 04/16 PO 0937 Dose Instructions: (1)Lorazepam: See admin criteria Assessment/Plan Assessment: 51-year-old gentleman with past medical history of alcoholism, opioid dependence on suboxone, hx of cocaine abuse, hypertension, anxiety, came into the ED requesting for alcohol detoxification. # Alcohol detox - Serum alcohol level of 408 on admission, last drink was on the morning of , 1 gallon of vodka - USG the Abdomen Showed Hepatic Steatosis, Unremarkable Appearance of Gallbladder * taper ativan to 1.5 q8 , IV ativan per DYLAN * Appreciate psych and SW consult * continue multivitamin and thiamine and folate # Substernal chest pain: Resolved, most likely due to GERD - EKG and trop negative * Continue omeprazole # Opioid dependence on suboxone -Confirmed with Dr. Brodie Turcios M.D., PCP regarding his suboxone dose -Pt sees Dr. Suresh Terrell for anxiety as psychiatrist * Continue suboxone 12 mg bid # Normocytic anemia with elevated RDW - H/H: 12.8/37.4, RDW 16.3 - Iron 270H, TIBC 396, ferritin 159, B12 530, folate > 20 # History of anxiety/depression * Continue Zoloft # History of hypertension. * Continue lisinopril 10 mg daily Mild/moderate and severe pain pathway DVT prophylaxis with Lovenox Regular diet Full code Problem List: 1. Alcohol dependence with withdrawal Pain Ratin Pain Location: none Pain Goal: Remain pain free Pain Plan: suboxone Tomorrow's Labs & Rationales: none DVT/Prophylaxis: mechanical, pharmacological LORRAINE ESPITIA,[facility] 04/16/17 1043: Attending MD Review Statement Attending Statement Attending MD Statement: examined this patient, discuss w/resident/PA/FUR MIXER, agreed w/resident/PA/FUR MIXER, discussed with family, reviewed EMR data (avail), discussed with nursing, discussed with case mgmt, reviewed images, amended to note Attending Assessment/Plan: Patient resting comfortably in bed . He is again tearful today . CIWA ranging from 0-14. Does not offer any other complaints. Recommendations 1. Continue Ativan as per CIWA protocol 2. Make sure psychiatry sees the patient today for his uncontrolled depression, as they may have to adjust his psych medications. 3. Continue vitamins and other chronic medications.
--- NOTE | 2017-04-16 13:53 | NUR ---
1300- PT CRYING INTERMITTENTLY. STATES HE HAS ANXIETY AND RACING THOUGHTS. ATIVAN TAPER IN PLACE WELL ATIVAN PER DYLAN. GAIT STEADIER TODAY. DR. LUND AND DR ZAMBRANO NOTIFIED OF ABOVE. PT TO BE SEEN BY PSYCH TODAY OR TOMORROW. PLAN IS FOR PT TO GO TO A ETOH REHAB CENTER AFTER DISCHARGE. NO NEW ORDERS AT THIS TIME.
[2017-04-16 15:08] VITALS: BP 152/74
[2017-04-16 21:45] VITALS: BP 128/88
[2017-04-16 22:00] VITALS: BP 128/88
[2017-04-17 06:00] VITALS: BP 100/72
[2017-04-17 06:30] VITALS: BP 100/72
--- NOTE | 2017-04-17 07:12 | PN- Housestaff ---
ASHELY ESPITIA,LILIANA 04/17/17 0712: Subjective Follow-up For: alcohol detox depression anxiety Subjective: pt seen today, still tearful, psych evaluated and recc starting gabapentin 300 tid, and increasing zoloft to 100. his ciwa scores were 4,0,0,0,4,7,17,6,12,4,4,6,4,6,10. he received total 4.5 po and 3 iv of ativan. will further taper his ativan from 1.5 q 8 to 1 q8. Review of Systems Constitutional: Reports: see HPI. Objective Last 24 Hrs of Vital Signs/I&O Vital Signs Date Time Temp Pulse Resp B/P B/P Pulse O2 O2 Flow FiO2 Mean Ox Delivery Rate 04/17 0944 76 130/86 04/17 0630 98.6 80 20 100/72 94 Room Air 04/17 0600 98.6 80 20 100/72 04/16 2200 98.7 99 20 128/88 04/16 2145 98.7 99 20 128/88 95 Room Air 04/16 1508 98.7 64 20 152/74 99 Intake & Output 04/17 1600 04/17 0800 04/17 0000 Intake Total 120 240 Output Total Balance 120 240 Intake, Oral 120 240 Patient 81.647 kg Weight Physical Exam General Appearance: Alert, Oriented X3, Cooperative, tearful HEENT: Atraumatic Cardiovascular: Regular Rate, Normal S1, Normal S2, No Murmurs Lungs: Clear to Auscultation, Normal Air Movement Abdomen: Normal Bowel Sounds, Soft, No Tenderness Neurological: Normal Speech Extremities: No Edema Current Medications: Current Medications Sig/James Start time Last Medication Dose Route Stop Time Status Admin Acetaminophen 500 MG Q6P PRN 04/13 0500 AC 04/13 PO 0615 Buprenorphine/ 1.5 TAB BID 04/13 1000 AC 04/17 Naloxone SL 0944 Clonidine 0.1 MG TID PRN 04/13 0945 AC PO Cyclobenzaprine HCl 10 MG Q8P PRN 04/13 1945 AC 04/15 PO 1319 Docusate Sodium 100 MG DAILY 04/16 1115 AC PO Enoxaparin Sodium 40 MG DAILY 04/13 1000 AC 04/17 SC 0944 Folic Acid 1 MG DAILY 04/13 1000 AC 04/17 PO 0942 Gabapentin 300 MG Q8 04/17 1045 AC 04/17 PO 1237 Ibuprofen 400 MG Q8P PRN 04/13 1945 AC 04/15 PO 1700 Lisinopril 10 MG DAILY 04/13 1000 AC 04/17 PO 0944 Lorazepam 1 MG Q8 04/17 1400 AC PO Lorazepam 1.5 MG Q8 04/16 1400 DC 04/17 PO 0602 Lorazepam See Dose Q1P PRN 04/12 2315 AC 04/16 Insts (1) IV 2010 Melatonin 3 MG ONCE ONE 04/16 2130 DC 04/16 PO 04/16 2131 2141 Multivitamins 1 TAB DAILY 04/13 1000 AC 04/17 PO 0944 Omeprazole 40 MG DAILY AC 04/13 0930 AC 04/17 PO 0603 Polyethylene Glycol 17 GM DAILY 04/16 1115 AC PO Senna 187 MG AT BEDTIME 04/16 2200 AC 04/16 PO 2141 Sertraline HCl 100 MG DAILY 04/18 1000 AC PO Sertraline HCl 50 MG ONCE ONE 04/17 1045 DC 04/17 PO 04/17 1046 1237 Sertraline HCl 50 MG DAILY 04/13 1000 DC 04/17 PO 0944 Thiamine HCl 100 MG DAILY 04/13 1000 AC 04/17 PO 0944 Dose Instructions: (1)Lorazepam: See admin criteria Assessment/Plan Assessment: 51-year-old gentleman with past medical history of alcoholism, opioid dependence on suboxone, hx of cocaine abuse, hypertension, anxiety, came into the ED requesting for alcohol detoxification. # Alcohol detox - Serum alcohol level of 408 on admission, last drink was on the morning of , 1 gallon of vodka - USG the Abdomen Showed Hepatic Steatosis, Unremarkable Appearance of Gallbladder * taper ativan to 1q8 , IV ativan per CIWA * Appreciate psych and SW consult * continue multivitamin and thiamine and folate # History of anxiety/depression * INcrease zoloft to 100 daily * Started gabapentin 300 tid # Substernal chest pain: Resolved, most likely due to GERD - EKG and trop negative * Continue omeprazole # Opioid dependence on suboxone -Confirmed with Dr. Brodie Turcios M.D., PCP regarding his suboxone dose -Pt sees Dr. Suresh Terrell for anxiety as psychiatrist * Continue suboxone 12 mg bid # Normocytic anemia with elevated RDW - H/H: 12.8/37.4, RDW 16.3 - Iron 270H, TIBC 396, ferritin 159, B12 530, folate > 20 # History of hypertension. * Continue lisinopril 10 mg daily Mild/moderate and severe pain pathway DVT prophylaxis with Lovenox Regular diet Full code Problem List: 1. Alcohol dependence with withdrawal Pain Ratin Pain Location: none Pain Goal: Remain pain free Pain Plan: suboxone Tomorrow's Labs & Rationales: none DVT/Prophylaxis: mechanical, pharmacological FAYE LA 04/17/17 1142: Attending MD Review Statement Attending Statement Attending MD Statement: examined this patient, discuss w/resident/PA/RELAY DISPATCHER, agreed w/resident/PA/RELAY DISPATCHER, discussed with family, reviewed EMR data (avail), discussed with nursing, discussed with case mgmt, reviewed images, amended to note Attending Assessment/Plan: Patient resting comfortably in bed . He is again tearful today. Does not offer any other complaints. Recommendations: 1. Continue Ativan as per CIWA protocol 2. f/u pysch. 3. Continue vitamins and other chronic medications. d/c planning , consult SW.
--- NOTE | 2017-04-17 10:51 | Cons- Psychiatry ---
Psychiatric Consult Date of Consult: 04/17/17 Reason for Consult: "opioid dependence on suboxone, alchol dependence." Clarified order. High anxiety and depression in context of detox. Ordered by Dr. Wayne Maxwell Attending History of Present Illness: Identifying Info: 51-year-old male presents to [facility] emergency department on 04/12/2017 requesting alcohol detox. He was admitted for high CIWA scores. CC: "I'm going through a lot, I've lost everything." HPI: Patient currently consumes at minimum 1 gallon of hard liquor daily for the past 2 weeks. He reports his last drink was on Thursday 04/12. Patient reports that since the past fall he has started drinking after 9 years of being sober. He reports during thi period he continued to how problems with anxiety and mood but to a lesser extent. 2 months ago the patient completed a detox and part of intensive outpatient program at [facility] prior to leaving [facility]. Per nursing report the patient has been "emotionally quite a mess." He's been experiencing high anxiety and is tearful frequently. He has been scoring on CIWA a scale for subjective anxiety. PMH: Please see the H&P for a complete listing HTN Past Psych History: -Outpatient Formerly saw Dr. Daniel Mckinley Now reports PCP rx Zoloft -Inpatient None use a Family Psych History: Endorses Substance History Alcohol use disorder Opiate use disorder precipitated by chronic back pain and subsequent prescription of opiates, currently on Suboxone -Treatment Brodie Flood MD outpatient Suboxone treatment 1 inpatient detox at [facility] several years ago 2 inpatient detoxes at [facility] most recently in 02/10 2 intensive outpatient courses at [facility], most recently in 02/10 Family Substance History: Endorses, 1 brother EtOH in remission, 1brother actively using opiates Social: , 1 child 14-year-old girl. One of 7 children 3 brothers 3 sisters raised in intact family. Born and raised in the [place] currently resides in [place]. 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 Abuse/Trauma: Mother of cancer on his 15th birthday. Current Home Psychotropic Medications: Zoloft 50 mg daily Suboxone 12 MG-3 MG FILM twice a day Current Hospital Psychotropic Medications: Med Buprenorphine/Naloxone 1.5 TAB SL BID 04/13/17 1000 Clonidine 0.1 MG PO TID PRN 04/13/17 0945 Lorazepam 1 MG PO Q8 04/17/17 1400 Med *DC Sertraline HCl 50 MG PO ONCE ONE 04/17/17 1045 Allergies: Coded Allergies: No Known Allergies (04/12/17) Current Medications: Current Medications Sig/James Start time Last Medication Dose Route Stop Time Status Admin Acetaminophen 500 MG Q6P PRN 04/13 0500 AC 04/13 PO 0615 Buprenorphine/ 1.5 TAB BID 04/13 1000 AC 04/17 Naloxone SL 0944 Clonidine 0.1 MG TID PRN 04/13 0945 AC PO Cyclobenzaprine HCl 10 MG Q8P PRN 04/13 1945 AC 04/15 PO 1319 Docusate Sodium 100 MG DAILY 04/16 1115 AC PO Enoxaparin Sodium 40 MG DAILY 04/13 1000 AC 04/17 SC 0944 Folic Acid 1 MG DAILY 04/13 1000 AC 04/17 PO 0942 Gabapentin 300 MG Q8 04/17 1045 AC PO Ibuprofen 400 MG Q8P PRN 04/13 1945 AC 04/15 PO 1700 Lisinopril 10 MG DAILY 04/13 1000 AC 04/17 PO 0944 Lorazepam 1 MG Q8 04/17 1400 AC PO Lorazepam 1.5 MG Q8 04/16 1400 DC 04/17 PO 0602 Lorazepam See Dose Q1P PRN 04/12 2315 AC 04/16 Insts (1) IV 2010 Melatonin 3 MG ONCE ONE 04/16 2130 DC 04/16 PO 04/16 2131 214 Multivitamins 1 TAB DAILY 04/13 1000 AC 04/17 PO 0944 Omeprazole 40 MG DAILY AC 04/13 0930 AC 04/17 PO 0603 Polyethylene Glycol 17 GM DAILY 04/16 1115 AC PO Senna 187 MG AT BEDTIME 04/16 2200 AC 04/16 PO 2141 Sertraline HCl 100 MG DAILY 04/18 1000 AC PO Sertraline HCl 50 MG ONCE ONE 04/17 1045 DC PO 04/17 1046 Sertraline HCl 50 MG DAILY 04/13 1000 DC 04/17 PO 0944 Thiamine HCl 100 MG DAILY 04/13 1000 AC 04/17 PO 0944 Dose Instructions: (1)Lorazepam: See admin criteria Past History Past Medical History Neurological: NONE EENT: NONE Cardiovascular: hypertension Respiratory: NONE Gastrointestinal: NONE Hepatic: NONE Renal: NONE Musculoskeletal: NONE Psychiatric: alcohol dependence, anxiety Endocrine: NONE Blood Disorders: NONE Cancer(s): NONE ESTATE ADMINISTRATOR/Reproductive: NONE Past Surgical History Surgical History: BACK & KNEE SURGERY Psychosocial History Strengths/Capabilities: Treatment motivated, cites his family supports, one previous long period of sobriety Physical Limitations (Interventions): Chronic relapsing and use Psychiatric Treatment History Psych Treatment Psychiatric Treatment Yes (as above) Diagnosis: Unspecified anxiety disorder Alcohol use disorder Opiate use disorder Risk Factors: high anxiety/distress, SA/MH hospitalized, male Substance Use/Abuse History Drug Use/Abuse Substances Used/Abused Yes Substance Abuse Treatment Substance Abuse Treatment Past Substance Abuse [place] Yes Assessment/Plan Mental Status Mental Status Exam: Mental Status Exam Presentation/Appearance: Cooperative with evaluation. Hospital garb. Anxious. Orientation: x4 Sensorium: Awake and alert Eye contact: Appropriate Affect: Blunted, congruent with stated mood, becomes tearful often durring interview Mood: "Shitty" Depression: 04/05 Anxiety: 09/05 Thought Content: - Denies SI/HI, AH/VH, PI. States and also believes they will not kill themselves. - Endorses Hopeless/Helpless Thoughts Thought Process: Linear Associations: Appropriate Speech: Nomral tone and rate Judgment: Fair Insight: Intact, understands the need for treatment Cognition: Memory: Grossly intact Attention/Concentration: Grossly intact Fund of Knowledge: Adequate Abstractions:Did not assess MMSE: Did not assess Brief ROS Gait: Unsteady Sleep: Fair Appetite: Adequate Energy: High IADLs/ADLs: Independent Pt reports he is agreeable to dual dx IOP or PHP program. Lab Results: Laboratory Tests 04/16/17 0603: Anion Gap 10, Estimated GFR > 60, BUN/Creatinine Ratio 20.0, Magnesium 2.0 04/15/17 0645: Anion Gap 10, Estimated GFR > 60, BUN/Creatinine Ratio 20.0, Phosphorus 3.2, Magnesium 2.0 Diffential Diagnosis: Alcohol use disorder, severe Opiate use disorder, on Suboxone Unspecified anxiety disorder versus substance induced anxiety disorder Unspecified depressive disorder versus substance-induced depressive disorder Impression: 51-year-old male presents in the context of alcohol withdrawal requesting detox. Patient has been experiencing considerable anxiety and sadness throughout this process. Of note the patient does have one extended period of sobriety during which she continued to experiencing mood and anxiety symptoms which may indicate underlying issues that are not attributable to substances. He would benefit from better anxiety control at present to help decrease the amount of Ativan he was consuming as well as ongoing dual diagnosis treatment. Provisional Treatment Plan: 1. Appreciate social work consult for assistance with disposition planning. 2. Please start gabapentin 300 mg 3 times a day for anxiety (off label use). If this is too sedating please reduce to 200 mg 3 times a day. 3. Please increase Zoloft to 100 mg. Consider increasing to 150 mg in 3 days. 4. Please continue to advance Ativan taper by 20% daily. 5. Continue CIWA & vitamin supplementation. Thank you for including psychiatry in this case we'll continue to follow
[2017-04-17] MEDS ORDERED: GABAPENTIN300 M2 PO (13:03)
[2017-04-17] MEDS ORDERED: ZOLOFT100 M1 PO (13:03)
--- NOTE | 2017-04-17 14:05 | NUR ---
Following patients progress as it relates to his detox. Patient is much calmer this am; alert and oriented. Continues to be engaged in interview. Case discussed at [facility]'s this am, and then again with Noah York APRN of psychiatry. Patient seeking a day treatemnt program upon discharge, and is familiar with [facility] in [place] (open Access on s).. Erik has participated in this program previously and asked for the phone number which I was able to provide him. Additonally, he was provided with the information about open access at [facility]. HE has been encouraged to contact his suboxone provider for guidance and recommendations as well. Psychiatry has recommended initiating zoloft and gabapentin. anticipate meeting with patient again prior to discharge.
[2017-04-17 14:06] VITALS: BP 112/70
--- NOTE | 2017-04-17 15:51 | Discharge Summary ---
Visit Information Visit Dates Admission Date: 04/12/17 Discharge Date: 04/18/17 Hospital Course Course Attending Physician: FAYE LA MD Primary Care Physician: Grecia XAVIER MD Hospital Course: 51-year-old gentleman with past medical history of alcoholism, opioid dependence on suboxone, hx of cocaine abuse, hypertension, anxiety, came into the ED requesting for alcohol detoxification. Patient consumes at minimum 1 gallon of hard liquor daily for the past 2 weeks RAYON TESTER. He reports his last drink was on Thursday 04/12. Past detox: - inpatient detox at [facility] several years ago - inpatient detoxes at [facility] most recently in 02/10 - intensive outpatient courses at [facility], most recently in 02/10 SH: , 1 child 14-year-old girl. One of 7 children 3 brothers 3 sisters raised in intact family. Born and raised in the [place] currently resides in [place]. 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 FH: 1 brother EtOH in remission, 1brother actively using opiates He was admitted to general medicine for alcohol detox. He was maintained on ativan taper. Did not require ativan drip during this admission. We discharged him on tab Ativan 1mg PO OD HS x 4 days. Advised him to have an appointment with [facility] in [place] for further management. He was noticably anxious and tearful throughout this admission, we increased his zoloft dose as well as added gabapenin. Pt to discuss restarting Campral with his Suboxone prescriber. Allergies: Coded Allergies: No Known Allergies (04/12/17) Disposition Summary Disposition Principal Diagnosis: Alcohol detox Additional Diagnosis: Anxiety Depression Opiate dependence -on Suboxone Normocytic hypochromic anemia Hypertension GERD Discharge Disposition: home or self care Discharge Instructions General Discharge Information Code Status: Full Code Patient's Diet: Regular Patient's Activity: As tolerated Follow-Up Instructions/Appts: Please follow-up with the PCP within a week of discharge. Please make an appointment to [facility] in [place] . Please follow-up with the methadon program. Medications at Discharge Discharge Medications: Stop taking the following medications: Sertraline HCl (Zoloft) 50 MG TABLET ORAL DAILY Continue taking these medications: Lisinopril (Prinivil) 10 MG TABLET 1 Tablet ORAL DAILY Comments: Last Taken: 04/18/17 Time: 9AM Buprenorphine HCl/Naloxone HCl (Suboxone 12 MG-3 MG Sl Film) 12 MG-3 MG FILM 1 Strip SUBLINGUAL TWICE DAILY Comments: Last Taken: 04/18/17 Time: 9AM Omeprazole (Omeprazole) 40 MG CAPSULE.DR 1 Capsule ORAL DAILY Days = 30 Comments: Last Taken: 04/18/17 Time: 6AM Start taking the following new medications: Lorazepam (Ativan) 1 MG TABLET 1 Tablet ORAL TAKE AT BEDTIME Days = 4 No Refills Comments: Last Taken: 04/18/17 Time: 6AM Gabapentin (Gabapentin) 300 MG CAPSULE 300 Milligram ORAL EVERY 8 HOURS Days = 30 No Refills Comments: Last Taken: 04/18/17 Time: 6AM Sertraline HCl (Zoloft) 100 MG TABLET 100 Milligram ORAL DAILY Days = 30 No Refills Comments: Last Taken: 04/18/17 Time: 9AM Folic Acid (Folic Acid) 1 MG TABLET 1 Milligram ORAL DAILY Days = 30 No Refills Comments: Last Taken: 04/18/17 Time: 9AM Thiamine HCl (Vitamin B-1) 100 MG TABLET 100 Milligram ORAL DAILY Days = 30 No Refills Comments: Last Taken: 04/18/17 Time: 9AM Copies To: Grecia XAVIER MD; ELLI ESPITIA,ARIEL Steele; RAE ESPITIA,PILLO Silva Attending MD Review Statement Documenting Attending: FAYE LA MD
[2017-04-17 22:00] VITALS: BP 112/70
[2017-04-17 22:55] VITALS: BP 130/90
[2017-04-18] VITALS: BP 110/64
[2017-04-18 04:00] VITALS: BP 112/70
[2017-04-18 06:00] VITALS: BP 90/70
[2017-04-18 06:56] VITALS: BP 90/70
--- NOTE | 2017-04-18 07:24 | PN- Housestaff ---
ROSSANA ESPITIA,JAIRON 04/18/17 0724: Subjective Follow-up For: Alcohol detox Complaints: no complaints Subjective: Patient is seen and examined at the bedside. He was sleeping without any discomfort. On waking up. He denies any palpitations, abdominal pain, diarrhea. He thinks he is much more comfortable than yesterday. He is aware that he is going to meet with social services and psych today. Review of Systems Constitutional: Denies: no symptoms. Comments: Patient denies any active symptoms. Objective Last 24 Hrs of Vital Signs/I&O Vital Signs Date Time Temp Pulse Resp B/P B/P Pulse O2 O2 Flow FiO2 Mean Ox Delivery Rate 04/18 0656 98.1 87 20 92 Room Air 04/18 0600 98.1 87 20 04/18 0400 98.0 83 18 /70 04/18 0000 98.0 80 18 110/64 04/17 2255 98.3 101 20 130/90 92 Room Air 04/17 2200 98.0 83 18 04/17 1406 98.0 83 18 94 Room Air 04/17 0944 76 130/86 Intake & Output 04/18 0800 04/18 0000 04/17 1600 Intake Total 360 360 750 Output Total 400 600 Balance -40 360 150 Intake, IV 30 Intake, Oral 360 360 720 Output, Urine 400 600 Patient 81.647 kg Weight Physical Exam General Appearance: Alert, Oriented X3, Cooperative, No Acute Distress Skin: No Rashes, No Breakdown Cardiovascular: Regular Rate, Normal S1, Normal S2 Lungs: Clear to Auscultation, Normal Air Movement Abdomen: Soft, No Tenderness, distended Neurological: Normal Speech Extremities: No Clubbing, No Cyanosis, No Edema Vascular: Normal Pulses, Pulses Symmetrical Current Medications: Current Medications Sig/James Start time Last Medication Dose Route Stop Time Status Admin Acetaminophen 500 MG Q6P PRN 04/13 0500 AC 04/13 PO 0615 Buprenorphine/ 1.5 TAB BID 04/13 1000 AC 04/17 Naloxone SL 2107 Clonidine 0.1 MG TID PRN 04/13 0945 AC PO Cyclobenzaprine HCl 10 MG Q8P PRN 04/13 1945 AC 04/15 PO 1319 Docusate Sodium 100 MG DAILY 04/16 1115 AC PO Enoxaparin Sodium 40 MG DAILY 04/13 1000 AC 04/17 SC 0944 Folic Acid 1 MG DAILY 04/13 1000 AC 04/17 PO 0942 Gabapentin 300 MG Q8 04/17 1045 AC 04/18 PO 0505 Ibuprofen 400 MG Q8P PRN 04/13 1945 AC 04/15 PO 1700 Lisinopril 10 MG DAILY 04/13 1000 AC 04/17 PO 0944 Lorazepam 1 MG BID 04/18 1000 UNVr PO Lorazepam 1 MG Q8 04/17 1400 DC 04/18 PO 0505 Lorazepam 1.5 MG Q8 04/16 1400 DC 04/17 PO 0602 Lorazepam See Dose Q1P PRN 04/12 2315 AC 04/17 Insts (1) IV 1811 Multivitamins 1 TAB DAILY 04/13 1000 AC 04/17 PO 0944 Omeprazole 40 MG DAILY AC 04/13 0930 AC 04/18 PO 0505 Patient Medication 1 ED .STK-MED ONE 04/17 1349 AR Teaching ED 04/17 1350 Polyethylene Glycol 17 GM DAILY 04/16 1115 AC PO Senna 187 MG AT BEDTIME 04/16 2200 AC 04/17 PO 2107 Sertraline HCl 100 MG DAILY 04/18 1000 AC PO Sertraline HCl 50 MG ONCE ONE 04/17 1045 DC 04/17 PO 04/17 1046 1237 Sertraline HCl 50 MG DAILY 04/13 1000 DC 04/17 PO 0944 Thiamine HCl 100 MG DAILY 04/13 1000 AC 04/17 PO 0944 Dose Instructions: (1)Lorazepam: See admin criteria Assessment/Plan Assessment: 51-year-old gentleman with past medical history of alcoholism, opioid dependence on suboxone, hx of cocaine abuse, hypertension, anxiety, came into the ED requesting for alcohol detoxification. Vital signs -temperature 98.1, pulse 87, respiration 20, blood pressure 90/70, SPO2 92% on room air, I/O -360/400, -40. CIWA - 4,3,4,8 Plan Discharge today # Alcohol detox - Serum alcohol level of 408 on admission, last drink was on the morning of , 1 gallon of vodka - USG the Abdomen Showed Hepatic Steatosis, Unremarkable Appearance of Gallbladder * taper ativan to Q12, IV ativan per CIWA * Appreciate psych and SW consult * continue multivitamin and thiamine and folate # History of anxiety/depression * Continue zoloft to 100 daily * Continue gabapentin 300 TID # Substernal chest pain: Resolved, most likely due to GERD - EKG and trop negative * Continue omeprazole # Opioid dependence on suboxone -Confirmed with Dr. Brodie Turcios M.D., PCP regarding his suboxone dose -Pt sees Dr. Suresh Terrell for anxiety as psychiatrist * Continue suboxone 12 mg bid # Normocytic anemia with elevated RDW - H/H: 12.8/37.4, RDW 16.3 - Iron 270H, TIBC 396, ferritin 159, B12 530, folate > 20 # History of hypertension. * Continue lisinopril 10 mg daily Mild/moderate and severe pain pathway DVT prophylaxis with Lovenox Regular diet Full code Problem List: 1. Alcohol dependence with withdrawal Pain Ratin Pain Location: Not applicable Pain Goal: Remain pain free Pain Plan: avoid NSAIDs Tomorrow's Labs & Rationales: Not required DVT/Prophylaxis: mechanical, pharmacological BESSIEFAYE Roman 04/18/17 1031: Attending MD Review Statement Attending Statement Attending MD Statement: examined this patient, discuss w/resident/PA/SECURITY SUPERVISOR, agreed w/resident/PA/SECURITY SUPERVISOR, discussed with family, reviewed EMR data (avail), discussed with nursing, discussed with case mgmt, reviewed images, amended to note Attending Assessment/Plan: Patient resting comfortably in bed . Does not offer any other complaints. vital stable. education provided Recommendations: 1. completed taper. 2. f/u pysch, increased zoloft 100 3. Continue vitamins and other chronic medications. d/c today, referral to [facility].
--- NOTE | 2017-04-18 07:48 | PN- Student ---
Subjective Subjective: Today Mr. Davis states that he feels well overall. He slept well last night, had a little anxiety that he said was well treated. He denies any abdominal pain, N/ V/D, headache, chest pain, palpitations, tremor, or breathing difficulty. He also denies any problems urinating or having a bowel movement. Objective Objective: Vital Signs Date Time Temp Pulse Resp B/P B/P Pulse O2 O2 Flow FiO2 Mean Ox Delivery Rate 04/18 0656 98.1 87 20 90/70 92 Room Air 04/18 0600 98.1 87 20 90/70 04/18 0400 98.0 83 18 112/70 04/18 0000 98.0 80 18 110/64 04/17 2255 98.3 101 20 130/90 92 Room Air 04/17 2200 98.0 83 18 04/17 1406 98.0 83 18 94 Room Air 04/17 0944 76 130/86 Intake & Output 04/18 0800 04/18 0000 04/17 1600 Intake Total 360 360 750 Output Total 400 600 Balance -40 360 150 Intake, IV 30 Intake, Oral 360 360 720 Output, Urine 400 600 Patient 180 lb Weight Notes: - patients zoloft was increased yesterday to 100mg daily PO - He had gabapentin added to medications for anxiety at 300 mg Q8 PO - Lorazepam was progressed to 1 mg Q8 PO + CIWA PE: General- comfortably laying in bed watching TV, cooperative, AAO x 3 HEENT- atraumatic, PERRLA, membranes moist and pink Neck- supple, no lymphadenopathy or thyromegaly, midline trachea CV- S1 and S2 appreciated, regular rate and rhythm, no murmurs or rubs heard Chest- equal chest rise bilaterally, vesicular sounds heard throughout all lung hunt Abd- distended, non-tender to palpation, no rigidity or guarding Ext- no edema present, cervical pain and stiffness improving, has radiculopathy down the left arm, axial load test negative for pain or reproduction of symptoms Neuro- 5/5 strenth UE bilaterally, CN II-XII intact. Results Results: Laboratory Tests 04/16/17 0603: Anion Gap 10, Estimated GFR > 60, BUN/Creatinine Ratio 20.0, Magnesium 2.0 Assessment/Plan Assessment: Mr. Davis is a 51 yo white male with a PMH of HTN, anxiety, alcohol abuse, and opiate dependence. He comes in requesting alcohol detox. He was previously sober for 9 years befor starting back drinking this past fall, he was admitted to [facility] in January 2017 for detox followed by discharge to rehab facility for continued treatment. Following rehab he started drinking again leading to a 1 bottle of vodka per day habit the past 2 weeks. His last drink was 1 gallon of vodka one day prior to his admissionl. On admission he was complaining of some right sided abdominal pain. His vitals were Temp- 98.2, HR- 105, RR- 20, BP- 140 /80, SpO2- 91 on room air. His labs were significant for a serum alcohol level of 408, HCO3-24, AG- 20, H/H- 12.8/37.4. Abdominal US revealed hepatic steatosis w/ an unremarkable appearing gallbladder. Today he seems to be doing well. His last CIWA scores were 4, 0, 0, 1, 3, 4, 2, 12 (@1800, given ativan 1mg IV). Vitals appear stable and he has no complaints. No signs of withdrawal present. Current Medications Sig/James Start time Last Medication Dose Route Stop Time Status Admin Acetaminophen 500 MG Q6P PRN 04/13 0500 AC 04/13 PO 0615 Buprenorphine/ 1.5 TAB BID 04/13 1000 AC 04/17 Naloxone SL 2107 Clonidine 0.1 MG TID PRN 04/13 0945 AC PO Cyclobenzaprine HCl 10 MG Q8P PRN 04/13 1945 AC 04/15 PO 1319 Docusate Sodium 100 MG DAILY 04/16 1115 AC PO Enoxaparin Sodium 40 MG DAILY 04/13 1000 AC 04/17 SC 0944 Folic Acid 1 MG DAILY 04/13 1000 AC 04/17 PO 0942 Gabapentin 300 MG Q8 04/17 1045 AC 04/18 PO 0505 Ibuprofen 400 MG Q8P PRN 04/13 1945 AC 04/15 PO 1700 Lisinopril 10 MG DAILY 04/13 1000 AC 04/17 PO 0944 Lorazepam 1 MG BID 04/18 1000 UNVr PO Lorazepam 1 MG Q8 04/17 1400 DC 04/18 PO 0505 Lorazepam 1.5 MG Q8 04/16 1400 DC 04/17 PO 0602 Lorazepam See Dose Q1P PRN 04/12 2315 AC 04/17 Insts (1) IV 1811 Multivitamins 1 TAB DAILY 04/13 1000 AC 04/17 PO 0944 Omeprazole 40 MG DAILY AC 04/13 0930 AC 04/18 PO 0505 Patient Medication 1 ED .STK-MED ONE 04/17 1349 DC Teaching ED 04/17 1350 Polyethylene Glycol 17 GM DAILY 04/16 1115 AC PO Senna 187 MG AT BEDTIME 04/16 2200 AC 04/17 PO 2107 Sertraline HCl 100 MG DAILY 04/18 1000 AC PO Sertraline HCl 50 MG ONCE ONE 04/17 1045 DC 04/17 PO 04/17 1046 1237 Sertraline HCl 50 MG DAILY 04/13 1000 DC 04/17 PO 0944 Thiamine HCl 100 MG DAILY 04/13 1000 AC 04/17 PO 0944 Dose Instructions: (1)Lorazepam: See admin criteria Plan: Plan to discharge today with ativan 1mg PO with doses for today, and 3 more consecutive days. Neck pain will be handled as outpatient since MRI was previously scheduled prior to admission. Problem List: 1. Alcohol detox/withdrawal- -continue treatment with thiamine and pyridoxime, multi-vitamin -Discharge today: one dose ativan 1 mg PO prior to discharge, send home with 3 more doses and instructions on how much to take per day. -clonidine 0.1 mg TID PO for SBP >160 -continue to follow psych and social work recommendations 2. Normocytic anemia- -continue to monitor 2. Anion Gap metabolic acidosis (secondary to alcohol)- -continue to monitor 3. Opiate dependence- -continue suboxone 12 mg BID SL, as confirmed by Dr. Flood 4. HTN- -continue treatment with lisinopril 10mg/day PO 5. Anxiety- -continue treatment with zoloft 100mg daily PO -Psych consult recommended gabapentin 300mg Q8 PO Code Status: Full Diet: no restriction DVT prophylaxis: enoxaparin, ALPS Mild, Moderate, Severe pain pathway
--- NOTE | 2017-04-18 08:43 | PN- Psychiatry ---
Assessment/Plan Impression: Identifying Info: 51-year-old male presents to [facility] emergency department on 04/12/2017 requesting alcohol detox. He was admitted for high CIWA scores. SUBJECTIVE Pt reports feeling "Not too bad... a little depressed." Discussed medications and tx options post discharge. Pt reports he has a previous prescription for Campral that he is considering restarting, will discuss with his suboxone provider. Reports he will be calling to arrange intake at [facility] today. Brief ROS Gait: No observed Sleep: Adequate, improved Appetite: Adequate OBJECTIVE Mental Status Exam Presentation/Appearance: Cooperative with evaluation. Hospital garb. More calm. Orientation: x4 Sensorium: Awake and alert Eye contact: Appropriate Affect: Somewhat tearful, stewart range of affect than yesterday Mood: "Little depressed" Depression: 06/05 Anxiety: 06/05 Thought Content: - Denies SI/HI, AH/VH, PI. States and also believes they will not kill themselves. - Endorses Hopeless/Helpless Thoughts Thought Process: Linear Associations: Appropriate Speech: Nomral tone and rate Judgment: Fair Insight: Intact, understands the need for treatment Cognition: Memory: Grossly intact Attention/Concentration: Grossly intact Fund of Knowledge: Adequate Abstractions:Did not assess Per report pt agreed to call outpatient tx center yesterday, was given resources. ASSESSMENT 51-year-old male presents in the context of alcohol withdrawal requesting detox. Patient has been experiencing considerable anxiety and sadness throughout this process. Of note the patient does have one extended period of sobriety during which she continued to experiencing mood and anxiety symptoms which may indicate underlying issues that are not attributable to substances. He would benefit from better anxiety control at present to help decrease the amount of Ativan he was consuming as well as ongoing dual diagnosis treatment. Differential diagnosis Alcohol use disorder, severe Opiate use disorder, on Suboxone Unspecified anxiety disorder versus substance induced anxiety disorder Unspecified depressive disorder versus substance-induced depressive disorder Suggestion: 1. Continue psychotropics as currently ordered. 2. Continue CIWA, vitamins, and ativan taper. 3. Pt to discuss restarting Campral with his Suboxone prescriber. 4. Pt to reach out to [facility] using resources provided by [facility]. Thank you for including psychiatry in this case, we will continue to follow. Subjective Subjective: as above Objective Last 24 Hrs of Vital Signs/I&O Current Medications Sig/James Start time Last Medication Dose Route Stop Time Status Admin Acetaminophen 500 MG Q6P PRN 04/13 0500 AC 04/13 PO 0615 Buprenorphine/ 1.5 TAB BID 04/13 1000 AC 04/17 Naloxone SL 2107 Clonidine 0.1 MG TID PRN 04/13 0945 AC PO Cyclobenzaprine HCl 10 MG Q8P PRN 04/13 1945 AC 04/15 PO 1319 Docusate Sodium 100 MG DAILY 04/16 1115 AC PO Enoxaparin Sodium 40 MG DAILY 04/13 1000 AC 04/17 SC 0944 Folic Acid 1 MG DAILY 04/13 1000 AC 04/17 PO 0942 Gabapentin 300 MG Q8 04/17 1045 AC 04/18 PO 0505 Ibuprofen 400 MG Q8P PRN 04/13 1945 AC 04/15 PO 1700 Lisinopril 10 MG DAILY 04/13 1000 AC 04/17 PO 0944 Lorazepam 1 MG Q12 04/18 1000 AC PO Lorazepam 1 MG Q8 04/17 1400 DC 04/18 PO 0505 Lorazepam See Dose Q1P PRN 04/12 2315 AC 04/17 Insts (1) IV 1811 Multivitamins 1 TAB DAILY 04/13 1000 AC 04/17 PO 0944 Omeprazole 40 MG DAILY AC 04/13 0930 AC 04/18 PO 0505 Patient Medication 1 ED .STK-MED ONE 04/17 1349 DC Teaching ED 04/17 1350 Polyethylene Glycol 17 GM DAILY 04/16 1115 AC PO Senna 187 MG AT BEDTIME 04/16 2200 04/17 PO 2107 Sertraline HCl 100 MG DAILY 04/18 1000 AC PO Sertraline HCl 50 MG ONCE ONE 04/17 1045 DC 04/17 PO 04/17 1046 1237 Sertraline HCl 50 MG DAILY 04/13 1000 DC 04/17 PO 0944 Thiamine HCl 100 MG DAILY 04/13 1000 AC 04/17 PO 0944 Dose Instructions: (1)Lorazepam: See admin criteria Vital Signs Date Time Temp Pulse Resp B/P B/P Pulse O2 O2 Flow FiO2 Mean Ox Delivery Rate 04/18 0656 98.1 87 20 90/70 92 Room Air 04/18 0600 98.1 87 20 90/70 04/18 0400 98.0 83 18 112/70 04/18 0000 98.0 80 18 110/64 04/17 2255 98.3 101 20 130/90 92 Room Air 04/17 2200 98.0 83 18 112/70 04/17 1406 98.0 83 18 112/70 94 Room Air 04/17 0944 76 130/86 Intake & Output 04/18 1600 04/18 0800 04/18 0000 Intake Total 360 360 Output Total 400 Balance -40 360 Intake, Oral 360 360 Output, Urine 400
[2017-04-18 09:01] VITALS: BP 126/82
[2017-04-18] MEDS ORDERED: ATIVAN1 M1 PO ×3 (10:03→10:27)
[2017-04-18] MEDS ORDERED: VITAMIN B-1100 MG PO (10:35)
[2017-04-18] MEDS ORDERED: FOLIC ACID1 M1 PO (10:35)
== END 2017-04-18 13:15 | DRG 897 ==
LOC: ERH 14:14 → 2NA 23:24 → ERHI 23:24 → ENRESERV 23:59 → 2NA 04-13 01:01
PROVIDERS: Emergency Medicine; Internal Medicine; Radiology Diagnostic Radiology; ADMIT Internal Medicine
DX: F10.239 Alcohol dependence with withdrawal, unspecified (principal); E87.2 Acidosis; Y90.8 Blood alcohol level of 240 mg/100 ml or more; I10 Essential (primary) hypertension; F17.200 Nicotine dependence, unspecified, uncomplicated; F41.9 Anxiety disorder, unspecified; D64.9 Anemia, unspecified; Z79.891 Long term (current) use of opiate analgesic
CPT/HCPCS: 2NASP; ERO; 36415; 80307; 82436; 93005; 93010; 96374; 96375; G0480; J0574; J1650; J3101; J3490; J7060